=== PATIENT | male | born 1935 | race Caucasian/White ===

== ENCOUNTER → 2016-06-16 | Outpatient (CLI) | payer OTHER ==
--- NOTE | 2016-06-16 10:30 | DX ---
PA and Lateral Chest June 16, 2016 Clinical Indications: Cough for one month. Findings: The lungs are hypoventilated with some patchy basilar atelectatic change versus early cons olidation. worst at the left base. The heart and pulmonary vessels are normal. There are no pleural effusions and no pneumothorax. The bones are unremarkable for this age. Impression: Hypoventilation with basilar atelectatic change versus early consolidation, worst at th e left base. Critical results discussed by Dr. Yee with Dr. Balderas on June 16, 2016 at 1026 hours.
== END ==
LOC: BMCIMAGING 09:49
PROVIDERS: ATTEND Family Medicine
DX: R05 Cough (principal); R91.8 Other nonspecific abnormal finding of lung field

== ENCOUNTER → 2016-06-22 | Outpatient (CLI) | payer OTHER ==
--- NOTE | 2016-06-22 12:09 | DX ---
PA and Lateral Chest History: Persistent wheezing in an 81-year-old male; comparison to the prior study June 16, 2016 wh ich was performed for a history of cough for one month. Findings: The heart and mediastinal contours are normal. Pulmonary vascularity is normal. There is central peribronchial thickening. Mild streaky perihilar opacities are seen. There is persis tent bibasilar opacity which is minimally changed. Differential considerations include persistent ate lectasis versus basilar pneumonia with clinical correlation suggested. Impression: Findings consistent with airways disease are noted. Persistent bibasilar opacities opaci ties, atelectasis versus pneumonia with clinical correlation recommended.
== END ==
LOC: BMCIMAGING 11:02
PROVIDERS: ATTEND Internal Medicine
DX: J06.9 Acute upper respiratory infection, unspecified (principal)

== ENCOUNTER → 2016-10-20 | Outpatient (CLI) | payer OTHER | LOC: BHLMT 13:15 | PROVIDERS: ATTEND Internal Medicine Cardiovascular Disease | DX: I25.10 Atherosclerotic heart disease of native coronary artery without angina pectoris (principal) | CPT/HCPCS: 93306-PO ==

== ENCOUNTER → 2016-10-26 | Outpatient (CLI) | payer OTHER | LOC: BHLMT 13:00 | PROVIDERS: ATTEND Internal Medicine Cardiovascular Disease | DX: Z01.810 Encounter for preprocedural cardiovascular examination (principal); I25.10 Atherosclerotic heart disease of native coronary artery without angina pectoris | CPT/HCPCS: 78452; 93017; A9500; J2785 ==

== ENCOUNTER 2016-11-07 05:56 | Inpatient (IN) | payer OTHER ==
--- NOTE | 2016-11-06 10:34 | GHP ---
[f rep st] PREOP HISTORY AND PHYSICAL DATE OF ADMISSION: 11/07/2016 ADMISSION DIAGNOSIS: Severe left knee degenerative arthritis. HISTORY OF PRESENT ILLNESS: The patient is an 81-year-old male who will be admitted for a left tota l knee arthroplasty with Dr. Alvarez at the [facility] on November 07, 2016. The patient has had progressive left knee pain over the last several years. His activities have become markedly limited because of his left knee pain. He underwent a right total knee arthroplasty 3 or 4 years a go with a good result. Recently, because of his left knee pain he has developed some right lateral trochanteric bursitis. Because of his recalcitrant response to conservative therapies and persisten t and debilitating knee pain, he has elected to proceed with a left total knee arthroplasty. PAST MEDICAL HISTORY: Pertinent for type 2 diabetes, coronary artery disease with a single stent pl aced several years ago, partial colectomy, lumbar and cervical spine degenerative disease, right hip OA, hypertension and hypercholesterolemia. No history of MRSA, PE or DVT. CURRENT MEDICATIONS: Alpha lipoic acid 300 mg capsule, gabapentin 300 mg, Januvia 100 mg, lisinopri l 10 mg, metformin 1000 mg twice daily, nortriptyline 50 mg daily, omeprazole 40 mg, ProAir HFA 90 m cg per actuation aerosol inhaler, prochlorperazine maleate 5 mg, ropinirole 0.25 mg, simvastatin 20 mg, fish oil, baby aspirin, multivitamin, stool softener, B12 and CoQ10 enzyme. ALLERGIES: Darvon, which makes him sweaty and shaky; and lactose which causes stomach cramps. SOCIAL HISTORY: He is a former smoker. He is a retired from [employer]. He has no alcohol int max. Occasional caffeine intake. He is . FAMILY HISTORY: Pertinent for renal disease. PAST SURGICAL HISTORY: Multiple lumbar spine surgeries, bilateral shoulder surgery, right total kne e arthroplasty in 2012, bilateral cataract surgery, partial colectomy in 2009. PHYSICAL EXAMINATION: GENERAL: He is an obese, 81-year-old male. VITALS: Height 5 feet 9 inches tall, weight 238 pounds. BMI 35.1. HEENT: Head is normocephalic, atraumatic. Eyes are PERRLA. C onjunctivae and sclerae are clear. Mouth: He has good oral hygiene without any loose teeth. LUNGS : Clear. HEART: Regular rate and rhythm. He has a soft grade 2/6 systolic murmur heard best at t he left knee and the right upper sternal border. No gallops or rubs. EXTREMITIES: Pertinent findi ngs are limited to the patient's left knee. He has a slight 5-10 degree flexion contracture. Mild knee joint effusion. Generalized tenderness across the medial and lateral joint lines and patellofe moral compartment. He has about 90 degrees of flexion with pain at end range. The knee is stable t o exam. DIAGNOSTIC IMAGING: Recent x-rays taken of the patient's left knee shows significant medial and lat eral compartment degenerative arthritis. He has a fairly healthy appearing patellofemoral joint. P eripheral osteophyte formation is appreciated as well. IMPRESSION ON ADMISSION: 1. Severe left knee degenerative arthritis. 2. Treated type 2 diabetes. 3. Coronary artery disease, with single stent. 4. History of cervical and lumbar spine degenerative disk disease, degenerative joint disease and s pine fusion. 5. Treated hypertension. 6. Treated hypercholesterolemia. 7. Moderate right hip osteoarthritis and trochanteric bursitis. PLAN: The plan will be for the patient to undergo a left total knee arthroplasty with Dr. Alvarez at the [facility] on November 07, 2016. The surgery has been described to the patient incl uding the risks, benefits, and expectations. He understands the importance of postoperative physica l therapy. He understands the risk of infection, blood vessel or nerve injury, cardiac event, or kn ee dislocation. All his questions have been answered. He consents to surgery here in the office to day. /[id number]/MODL
[2016-11-07] MEDS ORDERED: LR 1,000 ML IV ONE (06:13)
[2016-11-07] MEDS ORDERED: LIDOCAINE 1% 5 ML SDV ID PRN (06:13)
[2016-11-07] MEDS ORDERED: ROPI/epiNEPH/KETOROLAC JOINT COCKTAIL IU ONE (06:30)
[2016-11-07] MEDS ORDERED: CEFAZOLIN 2 GM/DEXTR 100 ML IV ONE (06:30)
[2016-11-07] MEDS ORDERED: FAMOTIDINE 20 MG TAB PO ONE (06:30)
[2016-11-07] MEDS ORDERED: TRANEXAMIC ACID IV ONE (06:30)
[2016-11-07] MEDS ORDERED: DEXAMETHASONE 4 MG/ML VIAL IVP ONE (06:30)
[2016-11-07] MEDS ORDERED: NS IV ONE (06:30)
[2016-11-07] MEDS ORDERED: POVIDONE-IODINE 20 ML in SODIUM CL IRRIG SOLUTION 500 ML IRR ONE (06:30)
[2016-11-07] MEDS ORDERED: ACETAMINOPHEN 325 MG TAB PO ONE (06:30)
[2016-11-07] MEDS ORDERED: CHLORHEXIDINE GLUC HIBICLENS 118 ML BTL TP ONE (06:30)
[2016-11-07] MEDS ORDERED: ceFAZolin 1 GM/5 ML SYR ONE (06:51)
[2016-11-07] MEDS ORDERED: VANCOMYCIN 1 GM VIAL ONE (06:51)
[2016-11-07] MEDS ORDERED: BUPIVACAINE 0.5% 30 ML SDV ONE (07:01)
[2016-11-07] MEDS ORDERED: MIDAZOLAM 2 MG/2 ML VIAL ONE (07:02)
[2016-11-07] MEDS ORDERED: PROPOFOL 200 MG/20 ML VIAL ONE ×2 (07:03)
[2016-11-07] MEDS ORDERED: fentaNYL 100 MCG/2 ML INJ ONE ×2 (07:04)
--- NOTE | 2016-11-07 08:53 | POSTOPPROG ---
Post Op Note Date of Operation: 11/07/16 Surgeon: Shan Alvarez Supply Chain Technician: Whitley Anesthesiologist: Raine Anesthesia: GET(General Endotracheal) Post-op Diagnosis: L knee arthritis Procedure: L TKA Inf/Abcess present in the surg proc area at time of surgery?: No EBL: 50-100 (add canal block)
[2016-11-07] MEDS ORDERED: CALCIUM CARBONATE 500 MG CHEWABLE TAB PO PRN (09:51)
[2016-11-07] MEDS ORDERED: NON-FORMULARY NEW DRUG (Omeprazole [Prilosec 20 Mg] 20 MG) PO PRN (09:51)
[2016-11-07] MEDS ORDERED: DIPHENOXYLATE/ATROPINE LOMOTIL 1 TAB PO PRN (09:53)
[2016-11-07] MEDS ORDERED: TEMAZEPAM 15 MG CAP PO PRN (09:53)
[2016-11-07] MEDS ORDERED: METOCLOPRAMIDE 10 MG/2 ML VIAL IVP PRN (09:53)
[2016-11-07] MEDS ORDERED: diphenhydrAMINE 25 MG CAP PO PRN (09:53)
[2016-11-07] MEDS ORDERED: BISACODYL 10 MG SUPP PR PRN (09:53)
[2016-11-07] MEDS ORDERED: ONDANSETRON DISINTEGRATING 4 MG TAB PO PRN (09:53)
[2016-11-07] MEDS ORDERED: NS 500 ML IV PRN (09:53)
[2016-11-07] MEDS ORDERED: POLYETHYLENE GLYCOL 3350 17 GM PKT PO PRN (09:53)
[2016-11-07] MEDS ORDERED: MAGNESIUM HYDROXIDE 30 ML UDCUP PO PRN (09:53)
[2016-11-07] MEDS ORDERED: PHARMACY PAIN CONSULT 1 EA MISC PRN (09:53)
[2016-11-07] MEDS ORDERED: LACTULOSE 20 GM/30 ML UDCUP PO PRN (09:53)
[2016-11-07] MEDS ORDERED: ONDANSETRON 4 MG/2 ML VIAL IVP PRN (09:53)
[2016-11-07] MEDS ORDERED: PROMETHAZINE HCL 25 MG SUPPR PR PRN (09:53)
[2016-11-07] MEDS ORDERED: traMADol 50 MG TAB PO PRN (09:53)
[2016-11-07] MEDS ORDERED: PROMETHAZINE HCL 25 MG/ML INJ IVP PRN (09:53)
--- NOTE | 2016-11-07 10:42 | GOP ---
[f rep st] OPERATIVE REPORT DATE OF OPERATION: 11/07/2016 SURGEON: Shan Alvarez MD COMPUTING MACHINE OPERATOR: Carroll Hinton and Guido Martinez. ANESTHESIA: A combination of general an adductor canal block. ANESTHESIOLOGIST: Dr. Matt Ni. PREOPERATIVE DIAGNOSIS: Left knee severe degenerative arthritis. POSTOPERATIVE DIAGNOSIS: Left knee severe degenerative arthritis. PROCEDURE PERFORMED: Left total knee arthroplasty, cemented, Go and Nephew Journey II, posterior stabilized. FINDINGS: ESTIMATED BLOOD LOSS: Following deflation of the tourniquet, was about 100 mL. COUNTS: The sponge and needle count were correct on 2 occasions. The patient was awakened from anesthesia, transferred to his gurney and taken to the PACU in satisfa ctory condition. There were no intraoperative complications. In the PACU, for additional postop pain control, Dr. Ni performed an adductor canal block. Guido Martinez and Carroll Hinton acted as surgical assistants. Their assistance was a medical chris saldivar. DESCRIPTION OF PROCEDURE: The patient was given 2 g of preoperative IV Ancef within 60 minutes of s urgery. He also received IV tranexamic acid at a dose of 10 mg/kg. He was placed on the operating room table and given general anesthesia by Dr. Ni. A Sarmiento catheter was not used. He wore a GI stocking and SCD on the nonoperative leg. His left lower extremity was prepped with ChloraPrep from the upper thigh tourniquet to the tips of the toes. It was draped free using sterile sheets, s tockinette, and Ioban plastic adhesive drape. The lower leg was wrapped with compressive Coban. Th e leg was exsanguinated with elevation and a 6-inch compressive wrap, and the pneumatic tourniquet w as inflated to 250 mmHg. The World Health Organization time-out was performed to verify the correct patient identity and the correct surgical side and site. The [place] time-out was also performed. The Shopographyayo leg holding device was sterilely attached to the operating room table and used throughou t the procedure to help position the knee. A straight midline incision was made centered on the patella. Subcutaneous tissues were sharply div ided and hemostasis was obtained using electrocautery. A medial subcutaneous flap was developed, an d capsule and synovium were opened in medial parapatellar fashion. Extensive degenerative changes w ere present in the medial compartment and in the patellofemoral joint. The medial capsule and perio steum were elevated off the rim of the medial tibial plateau all the way around to the posteromedial corner. His medial collateral ligament was released enough to balance the medial side of the knee. In order to improve exposure, his patella was prepared first. The original thickness of the patella was measured. Peripheral osteophytes were removed. I cut a flat surface on the back of the patell a. It was sized for a 35 mm resurfacing component. I removed enough bone from the patella such mike t the remaining bone plus the thickness of the patella component recreated the original thickness of the patella. The composite thickness was 22 mm. The intramedullary alignment guide system was used to set up the distal femoral cut. The distal fem ur was cut in 5 degrees of valgus. I made a +2 mm cut on the distal femur. The sizing jig was used to determine proper femoral sizing. He was a true size 6 femur without a shift. The 5 in 1 cuttin g block was applied, and the anterior and posterior condylar cuts and chamfer cuts were made. The f inal jig was used to remove the central portion of the distal femur to accommodate the posterior sta bilized femoral component. I was careful to determine proper rotation by referencing off Whitesides line. Each cut was checked for accuracy before and after it was made. The femur was sized for a s ize 6 posterior stabilized component. The trial component was tapped securely into place and was a good fit. Next, the tibia was prepared. The proximal tibial cut was made using the extramedullary alignment g uide system. The cut was made in a few degrees of posterior slope. I was careful to achieve proper varus/valgus alignment and proper rotation. The posterior compartment was cleared of meniscal remn ants. Osteophytes were removed the back of the femoral condyles. I checked the flexion and extensi on gaps, and they were equal, balanced and rectangular. The tibia was sized for a size 5 component width. With the trial components in place, I selected a 9 mm polyethylene posterior stabilized tibial insert. The knee easily came to full extension and fl exed to 130 degrees. There was no overstuffing in flexion. His collateral ligaments were stable an d balanced in 90 degrees of flexion and full extension. The trial patellar button was applied and t racking was checked. Tracking was excellent, without any digital pressure. 40 mL of a joint anesthetic cocktail was injected into the posterior capsule, the periarticular stru ctures, the quadriceps muscle and tendon areas, and the subcutaneous tissues along the skin edges. A second dose of IV tranexamic acid was given at a dose of 10 mg/kg. The surfaces were prepared for cementing. They were carefully cleaned with the pulsating lavage and thoroughly dried. The CarboJet device was used to blow dry the cancellous surfaces. A double batc h of high viscosity methylmethacrylate cement with 2 g of powdered vancomycin added was mixed. Whil e it was still in a semi liquid state, all [address] components were cemented in place. Excess cement was r emoved before it hardened. The 9 mm trial tibial insert was re-tried and was the proper thickness. The actual component was in serted and locked into place. The knee was thoroughly irrigated one final time with a dilute Betadi ne solution. The tourniquet was deflated and the total tourniquet time was 39 minutes. The vastus medialis porti on of the extensor mechanism was repaired with several interrupted [id number] #2 FiberWire sutu res. The capsule and synovium were closed first with multiple interrupted [id number] 0 PDS sut ures followed by a running #2 barbed Ethicon Stratafix PDO suture. The subcutaneous tissues were cl osed with a running 0 barbed Ethicon Stratafix Monoderm suture. The skin was closed with a running 3-0 barbed Ethicon Stratafix Monoderm subcuticular suture. The skin was sealed with half-inch Steri -Strips. The wound was covered with Xeroform gauze and flat 4x4s, and the knee was wrapped with a K erlix and 6-inch compressive wrap. A long-leg GI stocking and SCD were applied followed by the case management coordinator ling device. He wore a stocking and SCD on the opposite leg during the procedure. I used a size 6 cemented Go and Nephew Oxinium posterior stabilized femoral component, size 5 zully ented tibial base plate, a 9 mm posterior stabilized tibial insert and a 35 mm cemented round all-po lyethylene resurfacing patellar component. /[id number]/MODL
[2016-11-07] MEDS ORDERED: PANTOPRAZOLE SODIUM 40 MG TAB PO PRN (11:06)
[2016-11-07] MEDS: LR 1,000 ML IV SCH ×2 (11:18→19:32)
--- NOTE | 2016-11-07 12:02 | GOP ---
[f rep st] OPERATIVE REPORT DATE OF OPERATION: 11/07/2016 SURGEON: Shan Alvarez MD PREOPERATIVE DIAGNOSIS: POSTOPERATIVE DIAGNOSIS: PROCEDURE PERFORMED: FINDINGS: DESCRIPTION OF PROCEDURE: ADDENDUM/COMPLETION OF OPERATIVE NOTE: The last couple of paragraphs did not get transcribed. I am not sure why. Just add a new paragraph: The estimated blood loss following deflation of the tourniquet was about 100 mL. The sponge and needle count were correct on 2 occasions. The patient was awakened from anesthesia, transferred to his [facility] and taken to the PACU i n satisfactory condition. There were no intraoperative complications. In the PACU, for additional postoperative pain control, Dr. Ni performed an adductor canal blo ck. Carroll Hinton and Guido Martinez acted as surgical assistants. Their assistance was a devon saldivar. /[id number]/MODL
[2016-11-07] MEDS: ACETAMINOPHEN 325 MG TAB PO SCH ×3 (13:46→23:09)
[2016-11-07] MEDS ORDERED: ceFAZolin 2 GM/DEXTROSE 100 ML IV SCH (14:00)
[2016-11-07] MEDS: KETOROLAC 30 MG/1 ML SDV IVP PRN ×2 (14:37→22:17)
[2016-11-07] MEDS: CYCLOBENZAPRINE 10 MG TAB PO PRN ×2 (14:37→22:16)
[2016-11-07] MEDS: ceFAZolin 2 GM in D5W 100 ML IV SCH ×2 (14:43→21:16)
[2016-11-07] MEDS: OMEGA-3 FATTY ACIDS 1,000 MG CAP PO SCH (16:35)
[2016-11-07] MEDS: metFORMIN HCL 500 MG TAB PO SCH (16:35)
[2016-11-07] MEDS: ASPIRIN 325 MG TAB PO SCH (21:16)
[2016-11-07] MEDS: FAMOTIDINE 20 MG TAB PO SCH (21:17)
[2016-11-07] MEDS: NORTRIPTYLINE HCL 50 MG CAP PO SCH (21:18)
[2016-11-07] MEDS: SENNOSIDES/DOCUSATE SODIUM TAB PO SCH (21:19)
[2016-11-07] MEDS: oxyCODONE IR 5 MG TAB PO PRN (22:16)
[2016-11-08 04:08] VITALS: TEMP 98.2
[2016-11-08 04:57] LABS: HEMATOCRIT 38.7 % (40.0-51.0); HEMOGLOBIN 12.8 g/dL (13.7-17.5)
[2016-11-08] MEDS: ceFAZolin 2 GM in D5W 100 ML IV SCH (05:19)
[2016-11-08] MEDS: ACETAMINOPHEN 325 MG TAB PO SCH ×2 (05:19→11:40)
[2016-11-08 07:59] VITALS: RESP 18
[2016-11-08] MEDS: OMEGA-3 FATTY ACIDS 1,000 MG CAP PO SCH (08:18)
[2016-11-08] MEDS: metFORMIN HCL 500 MG TAB PO SCH (08:18)
[2016-11-08] MEDS: ASPIRIN 325 MG TAB PO SCH (08:19)
[2016-11-08] MEDS: NORTRIPTYLINE HCL 50 MG CAP PO SCH (08:19)
[2016-11-08] MEDS: FAMOTIDINE 20 MG TAB PO SCH (08:19)
[2016-11-08] MEDS: SENNOSIDES/DOCUSATE SODIUM TAB PO SCH (08:20)
[2016-11-08] MEDS: KETOROLAC 30 MG/1 ML SDV IVP PRN (08:22)
[2016-11-08] MEDS ORDERED: MULTIVITAMINS 1 EACH TAB PO SCH (09:00)
[2016-11-08] MEDS ORDERED: ATORVASTATIN CALCIUM 10 MG TAB PO SCH (09:00)
[2016-11-08] MEDS ORDERED: LISINOPRIL 10 MG TAB PO SCH (09:00)
[2016-11-08] MEDS ORDERED: FERROUS SULFATE 140 MG TAB.ER PO SCH (09:00)
[2016-11-08] MEDS ORDERED: NON-FORMULARY NEW DRUG (Simvastatin [Zocor 20 Mg] 20 MG) PO SCH (09:00)
--- NOTE | 2016-11-08 09:22 | SOAPPROG ---
SOAP Progress Note Assessment/Plan: Assessment: Afebrile. Up and walking in [place]. Moderate pain. 90 degrees of flexion. H/H is good. Films look good. Dsg is dry. Plan: Continue PT today. To [facility] in [place] today. 11/08/16 09:22 Objective: Vital Signs Temp Pulse Resp BP Pulse Ox 36.8 C 104 H 18 120/61 92 11/08/16 07:58 11/08/16 07:58 11/08/16 07:58 11/08/16 08:19 11/08/16 07:58 Laboratory Results 11/08/16 04:34 11/07/16 11/08/16 11/09/16 05:59 05:59 05:59 Intake Total 4180 Output Total 5625 Balance 1705 ICD10 Worksheet Patient Problems: Problems Problem Status Onset Osteoarthritis of left knee Acute Osteoarthritis of right knee Acute
--- NOTE | 2016-11-08 09:25 | PDIAF ---
- Diagnosis Diagnosis: left knee OA Code Status: Full Code - Medication Management Discharge Medications: Medications to Continue on Transfer Docusate Sodium [Colace 100 MG (*)] 100 mg PO BID 03/07/13 [Last Taken 11/07/16 05:15] Herbals/Supplements -Info Only 1 each PO AD 03/07/13 [Last Taken 03/16/13 1] Lisinopril [Zestril 10 mg (*)] 10 mg PO DAILY 03/07/13 [Last Taken 11/07/16 05: 15] Nortriptyline HCl [Pamelor 50 mg (*)] 50 mg PO BID 03/07/13 [Last Taken 11/06/16 ] [place]-3 Fatty Acids [Fish Oil 1000 mg (*)] 1,000 mg PO BIDMEAL 03/07/13 [Last Taken 10/31/16] Simvastatin [Zocor 20 mg] 20 mg PO DAILY 03/07/13 [Last Taken 11/06/16] metFORMIN HCL [Glucophage 500 mg (*)] 1,000 mg PO BIDMEAL 03/07/13 [Last Taken 11/04/16] Calcium Carbonate [Tums 500MG (*)] 1,000 mg PO DAILY PRN 03/18/13 [Last Taken ] Omeprazole [Prilosec 20 mg] 20 mg PO DAILY PRN 03/18/13 [Last Taken 11/07/16 05: 15] Multivitamins [Multivitamin (*)] 1 each PO DAILY 11/01/16 [Last Taken 11/03/16] Naproxen Sodium [Aleve 220 MG (*)] 440 mg PO HS 11/01/16 [Last Taken 11/02/16] Acetaminophen [Tylenol 325mg (*)] 650 mg PO Q6HRS #0 tab 11/08/16 [Last Taken Unknown] Aspirin [Aspirin 325 mg (*)] 325 mg PO DAILY #21 tab 11/08/16 [Last Taken Unknown] Ferrous Sulfate [Slow Fe 140 MG (*)] 140 mg PO DAILY #30 tab.er 11/08/16 [Last Taken Unknown] Ondansetron Odt [Zofran Odt 4 mg (*)] 4 mg PO Q4HRS PRN #0 tab 11/08/16 [Last Taken Unknown] oxyCODONE IR [Oxycodone Ir (*)] 5 - 10 mg PO Q3HRS PRN #0 tab 11/08/16 [Last Taken Unknown] traMADol [Ultram 50 mg (*)] 50 mg PO Q6HRS PRN #0 tab 11/08/16 [Last Taken Unknown] Discharge Medications: Refer to the Discharge Home Medication list for PRN reason. PICC Care - Routine: N/A - Orders Services needed: Physical Therapy Diet Recommendation: no restrictions on diet Diet Texture: Regular Texture Diet Sarmiento: Not applicable Kip Stockings Discontinue Date: 1 week Wound Care Instructions: keep clean and dry. You may shower. Activity/Weight Bearing Restrictions: as tolerated. Equipment: Use Zero knee device while in bed as tolerated. - Follow Up Care Current Providers and Referrals: Shan Alvarez MD [Medical Doctor] - 11/23/16 10:45 am Dagoberto Oliver MD [Primary Care Provider] -
--- NOTE | 2016-11-08 09:46 | GDS ---
[f rep st] DISCHARGE SUMMARY ADMISSION DIAGNOSIS: Left knee severe degenerative arthritis. DISCHARGE DIAGNOSIS: Left knee severe degenerative arthritis. OPERATION PERFORMED: November 07, 2016, a left total knee arthroplasty, cemented. POSTOPERATIVE COMPLICATIONS: None. CONDITION ON DISCHARGE: Improved. DESCRIPTION OF HOSPITAL COURSE: The patient was admitted to the hospital on the morning of surgery. His admission CBC and electrolytes were normal. BUN and creatinine 16 and 0.8. The same day, und er a combination of general anesthesia and an adductor canal block, he underwent a left total knee a rthroplasty. Postoperatively, he was treated with multimodal DVT prophylaxis, including aspirin and early mobilization. On the first postoperative day, his hemoglobin and hematocrit were 12.8 and 38 .7. He was seen by Physical Therapy, and made good progress with ambulation and knee range of motio n. By the time of discharge, he was afebrile and was independent walking with a walker. DISPOSITION: The patient is transferred to [facility] in [place]. He may progress to full judd ghtbearing on the left as tolerated. Continue aspirin 325 mg p.o. daily for 21 days. I will see zaida mateo back in the office on November 23, 2016. He has prescriptions for oxycodone and tramadol for pain con trol. If there are any problems, he is to call me at the office. Copy requested to: [facility] in [place] /[id number]/MODL
--- NOTE | 2016-11-08 11:30 | PDIAF ---
- Diagnosis Diagnosis: left knee OA Code Status: Full Code - Medication Management Discharge Medications: Medications to Continue on Transfer Docusate Sodium [Colace 100 MG (*)] 100 mg PO BID 03/07/13 [Last Taken 11/07/16 05:15] Herbals/Supplements -Info Only 1 each PO AD 03/07/13 [Last Taken 03/16/13 1] Lisinopril [Zestril 10 mg (*)] 10 mg PO DAILY 03/07/13 [Last Taken 11/07/16 05: 15] Nortriptyline HCl [Pamelor 50 mg (*)] 50 mg PO BID 03/07/13 [Last Taken 11/06/16 ] [place]-3 Fatty Acids [Fish Oil 1000 mg (*)] 1,000 mg PO BIDMEAL 03/07/13 [Last Taken 10/31/16] Simvastatin [Zocor 20 mg] 20 mg PO DAILY 03/07/13 [Last Taken 11/06/16] metFORMIN HCL [Glucophage 500 mg (*)] 1,000 mg PO BIDMEAL 03/07/13 [Last Taken 11/04/16] Calcium Carbonate [Tums 500MG (*)] 1,000 mg PO DAILY PRN 03/18/13 [Last Taken ] Omeprazole [Prilosec 20 mg] 20 mg PO DAILY PRN 03/18/13 [Last Taken 11/07/16 05: 15] Multivitamins [Multivitamin (*)] 1 each PO DAILY 11/01/16 [Last Taken 11/03/16] Naproxen Sodium [Aleve 220 MG (*)] 440 mg PO HS 11/01/16 [Last Taken 11/02/16] Acetaminophen [Tylenol 325mg (*)] 650 mg PO Q6HRS #0 tab 11/08/16 [Last Taken Unknown] Aspirin [Aspirin 325 mg (*)] 325 mg PO DAILY #21 tab 11/08/16 [Last Taken Unknown] Ferrous Sulfate [Slow Fe 140 MG (*)] 140 mg PO DAILY #30 tab.er 11/08/16 [Last Taken Unknown] Ondansetron Odt [Zofran Odt 4 mg (*)] 4 mg PO Q4HRS PRN #0 tab 11/08/16 [Last Taken Unknown] oxyCODONE IR [Oxycodone Ir (*)] 5 - 10 mg PO Q3HRS PRN #0 tab 11/08/16 [Last Taken Unknown] traMADol [Ultram 50 mg (*)] 50 mg PO Q6HRS PRN #0 tab 11/08/16 [Last Taken Unknown] Discharge Medications: Refer to the Discharge Home Medication list for PRN reason. PICC Care - Routine: N/A - Orders Services needed: Physical Therapy Diet Recommendation: ADA 2000 consistent carb Diet Texture: Regular Texture Diet Sarmiento: Not applicable Kip Stockings Discontinue Date: 1 week Wound Care Instructions: keep clean and dry. You may shower. Activity/Weight Bearing Restrictions: as tolerated. Equipment: Use Zero knee device while in bed as tolerated. - Follow Up Care Current Providers and Referrals: Shan Alvarez MD [Medical Doctor] - 11/23/16 10:45 am Dagoberto Oliver MD [Primary Care Provider] -
[2016-11-08] MEDS: oxyCODONE IR 5 MG TAB PO PRN (11:41)
[2016-11-08 12:35] VITALS: BP 116/72; PULSE 97; O2SAT 93
== END 2016-11-08 13:43 | DRG 470 ==
LOC: F3N 05:56
PROVIDERS: ADMIT Orthopaedic Surgery; ATTEND Orthopaedic Surgery
PROC: 0SRD0J9 Replacement of Left Knee Joint with Synthetic Substitute, Cemented, Open Approach (ICD-10-PCS; principal; 2016-11-07 07:15)
DX: M17.12 Unilateral primary osteoarthritis, left knee (principal); E11.9 Type 2 diabetes mellitus without complications; I25.10 Atherosclerotic heart disease of native coronary artery without angina pectoris; I10 Essential (primary) hypertension; E78.00 Pure hypercholesterolemia, unspecified; Z95.5 Presence of coronary angioplasty implant and graft; Z96.651 Presence of right artificial knee joint; Z87.891 Personal history of nicotine dependence
CPT/HCPCS: 97110-GP; 97116-GP; 97161-GP; 97165-GO; C1713; G8978-GP-CJ; G8979-GP-CI; G8987-GO-CJ; G8988-GO-CI; J0171; J0690; J1100; J1885; J2250; J2550; J2704; J2795; J3010; J3370

== ENCOUNTER → 2017-02-14 | Outpatient (CLI) | payer OTHER, MEDICARE | LOC: BMCIMAGING 15:31 | PROVIDERS: ATTEND Internal Medicine | DX: J40 Bronchitis, not specified as acute or chronic (principal) ==

== ENCOUNTER → 2017-10-30 | Outpatient (CLI) | payer OTHER, MEDICARE | LOC: BHLMT 15:30 | PROVIDERS: ATTEND Internal Medicine Interventional Cardiology | DX: I25.10 Atherosclerotic heart disease of native coronary artery without angina pectoris (principal); E78.00 Pure hypercholesterolemia, unspecified; I10 Essential (primary) hypertension; R60.9 Edema, unspecified | CPT/HCPCS: 93005-PO ==

== ENCOUNTER → 2017-10-31 | Outpatient (CLI) | payer OTHER, MEDICARE | LOC: FIMAGING 15:03 | PROVIDERS: ATTEND Internal Medicine Interventional Cardiology | DX: R60.0 Localized edema (principal) ==

== ENCOUNTER → 2017-11-26 | Outpatient (CLI) | payer OTHER, MEDICARE | LOC: BMCIMAGING 15:31 | PROVIDERS: ATTEND Orthopaedic Surgery Hand Surgery | DX: M11.232 Other chondrocalcinosis, left wrist (principal); M19.042 Primary osteoarthritis, left hand | CPT/HCPCS: 86812-90 ==

== ENCOUNTER 2017-12-31 11:13 | Inpatient (IN) | payer OTHER, MEDICARE ==
--- NOTE | 2017-12-31 11:38 | CPEKG ---
Heart Rate: 118 RR Interval: 508 QRSD Interval: 102 QT Interval: 328 QTC Interval: 460 QRS [place]: -61 T Wave [place]: 49 EKG Severity - ABNORMAL ECG - EKG Impression: ATRIAL FIBRILLATION, V-RATE 91-143 Electronically Signed By: Romie Downing 31-Dec-2017 11:55:30
[2017-12-31] MEDS ORDERED: ASPIRIN 81 MG CHEWABLE TAB PO ONE (12:05)
--- NOTE | 2017-12-31 12:11 | EDPHY ---
H & P Stated Complaint: SOB, cough, weakness for 6 months, getting worse Time Seen by Provider: 12/31/17 11:52 HPI/ROS: CHIEF COMPLAINT: Shortness of breath HISTORY OF PRESENT ILLNESS: The patient is an 84-year-old man with a history of a single cardiac stent as well as obesity and obstructive sleep apnea who comes to the emergency department complaining of shortness of breath over the last 6 months and a dry cough. He has not had a fever. He has seen his primary took him off of his lisinopril. He is in atrial fibrillation today. He and his did not know what that was. I do see an old EKG in 2010 that also was in atrial fibrillation. He is not anticoagulated. No focal weakness or deficits. He states that he feels weak generally throughout his entire body and shortness of breath gets worse when he tries to ambulate. He denies chest pain or palpitations. He does have slight increased swelling in his legs although he does have some at baseline. REVIEW OF SYSTEMS: Constitutional: denies: chills, fever, recent illness, recent injury EENTM: denies: blurred vision, double vision, nose congestion Respiratory: See HPI Cardiac: See HPI denies: chest pain, irregular heart rate, lightheadedness, palpitations Gastrointestinal/Abdominal: denies: abdominal pain, diarrhea, nausea, vomiting, blood streaked stools Genitourinary: denies: dysuria, frequency, hematuria, pain Musculoskeletal: denies: joint pain, muscle pain Skin: denies: lesions, rash, jaundice, bruising Neurological: denies: headache, numbness, paresthesia, tingling, dizziness, weakness Hematologic/Lymphatic: denies: blood clots, easy bleeding, easy bruising Immunologic/allergic: denies: HIV/AIDS, transplant EXAM: GENERAL: Moderate distress. HEAD: Atraumatic, normocephalic. EYES: Pupils equal round and reactive to light, extraocular movements intact, sclera anicteric, conjunctiva are normal. ENT: TMs normal, nares patent, oropharynx clear without exudates. Moist mucous membranes. NECK: Mild diffuse crackles LUNGS: Breath sounds clear to auscultation bilaterally and equal. No wheezes rales or rhonchi. HEART: Irregular with systolic murmur, rubs or gallops. ABDOMEN: Soft, nontender, normoactive bowel sounds. No guarding, no rebound. No masses appreciated. BACK: No CVA tenderness, no spinal tenderness, step-offs or deformities EXTREMITIES: Normal range of motion, 1+ pitting edema. No clubbing or cyanosis. NEUROLOGICAL: Cranial nerves II through XII grossly intact. Normal speech, normal gait. 5/5 strength, normal movement in all extremities, normal sensation PSYCH: Normal mood, normal affect. SKIN: Warm, dry, normal turgor, no visible rashes or lesions. 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 - Social History Smoking Status: Former smoker Alcohol Use: Sober Constitutional: Initial Vital Signs Temperature (C) 37.0 C 12/31/17 11:17 Heart Rate 113 H 12/31/17 11:17 Respiratory Rate 20 12/31/17 11:17 Blood Pressure 118/79 12/31/17 11:17 O2 Sat (%) 91 L 12/31/17 11:17 O2 Delivery Mode Nasal Cannula O2 (L/minute) 5 Allergies/Adverse Reactions: DARVON Allergy (Uncoded 12/31/17 11:16) Other-Enter Comments LACTOSE INTOL Allergy (Uncoded 12/31/17 11:16) Other-Enter Comments Home Medications: Medication Instructions Recorded Docusate Sodium [Colace 100 MG (*)] 100 mg PO BID 03/07/13 Herbals/Supplements -Info Only 1 each PO AD 03/07/13 Lisinopril [Zestril 10 mg (*)] 10 mg PO DAILY 03/07/13 Nortriptyline HCl [Pamelor 50 mg 50 mg PO BID 03/07/13 (*)] [place]-3 Fatty Acids [Fish Oil 1000 1,000 mg PO BIDMEAL 03/07/13 mg (*)] Simvastatin [Zocor 20 mg] 20 mg PO DAILY 03/07/13 metFORMIN HCL [Glucophage 500 mg 1,000 mg PO BIDMEAL 03/07/13 (*)] Calcium Carbonate [Tums 500MG (*)] 1,000 mg PO DAILY PRN 03/18/13 Multivitamins [Multivitamin (*)] 1 each PO DAILY 11/01/16 Naproxen Sodium [Aleve 220 MG (*)] 440 mg PO HS 11/01/16 Aspirin [Aspirin 81mg (*)] 81 mg PO HS 12/31/17 Cyanocobalamin (Vitamin B-12) 1,000 mcg PO DAILY 12/31/17 [Vitamin B-12] Gabapentin [Neurontin 300 MG (*)] 300 mg PO DAILY 12/31/17 Gabapentin [Neurontin 300 MG (*)] 600 mg PO HS 12/31/17 Omeprazole 40 mg PO DAILY 12/31/17 rOPINIRole HCL [Requip] 0.25 mg PO HS 12/31/17 Medical Decision Making - Diagnostics EKG Interpretation: An EKG obtained and was read and documented in trace view. Please see trace view for full reading and report. Atrial fibrillation rate 118 no acute ischemic changes Imaging: I viewed and interpreted images myself (Mild pulmonary edema) ED Course/Re-evaluation: 12:55 p.m. the patient has atrial fibrillation and is not treated. The he has mild CHF. I will give him Lasix and diltiazem and admit. He is also anemic but this appears to be somewhat baseline. No blood in his stool. 1:05 p.m. I spoke with Lidya who accepted for Dr. Edge to a telemetry. Will start the patient on heparin as well. Differential Diagnosis: Partial list of the Differential diagnosis considered include but were not limited to; CHF, atrial fibrillation and although unlikely based on the history and physical exam, I also considered pneumonia, pneumothorax, PE, acute coronary disease. Critical Care Time: Critical care time spent by me, Dr. Downing exclusive with this patient was 45 minutes, exclusive of the PA time exclusive of procedures. The organ system that was at risk was cardiovascular and I gave medication, diagnostics and admission and consultation to prevent worsening of the patient's condition - Data Points Laboratory Results: Laboratory Results 01/01/18 05:52 01/01/18 05:52 Medications Given: Albuterol/Ipratropium (Duoneb) 3 ml IH Q6HRS PRN PRN Reason: Short of Breath/Dyspnea Stop: 06/29/18 23:05 Last Admin: 01/02/18 09:06 Dose: 3 ml Apixaban (Eliquis) 5 mg PO BID [facility] Stop: 06/30/18 20:59 Last Admin: 01/02/18 08:34 Dose: 5 mg Atorvastatin Calcium (Lipitor) 10 mg PO DAILY [facility] Stop: 06/30/18 08:59 Last Admin: 01/02/18 08:33 Dose: 10 mg Docusate Sodium (Colace) 100 mg PO BID [facility] Stop: 06/29/18 20:59 Last Admin: 01/02/18 08:34 Dose: 100 mg Ferrous Sulfate (Ferrous Sulfate) 325 mg PO DAILY [facility] Stop: 07/01/18 08:59 Last Admin: 01/02/18 08:33 Dose: 325 mg Gabapentin (Neurontin) 300 mg PO DAILY [facility] Stop: 06/30/18 08:59 Last Admin: 01/02/18 08:34 Dose: 300 mg Gabapentin (Neurontin) 600 mg PO HS [facility] Stop: 06/29/18 20:59 Last Admin: 01/01/18 20:28 Dose: 600 mg Insulin Human Lispro (Humalog Lispro) 0 unit SC TIDMEAL [facility] PRN Reason: Protocol Stop: 06/29/18 17:59 Last Admin: 01/02/18 17:15 Dose: Not Given Metoprolol Tartrate (Lopressor) 25 mg PO BID [facility] Stop: 06/29/18 20:59 Last Admin: 01/02/18 08:33 Dose: 25 mg Nortriptyline HCl (Pamelor) 50 mg PO BID [facility] Stop: 06/29/18 20:59 Last Admin: 01/02/18 08:34 Dose: 50 mg Feaot-6-Dgkw Ethyl Esters (Fish Oil) 1,000 mg PO BIDMEAL [facility] Stop: 06/29/18 17:59 Last Admin: 01/02/18 17:49 Dose: 1,000 mg Pantoprazole Sodium (Protonix) 40 mg PO DAILY [facility] Stop: 06/30/18 08:59 Last Admin: 01/02/18 08:32 Dose: 40 mg Polyethylene Glycol (Miralax) 17 gm PO DAILY PRN; Protocol PRN Reason: Constipation, patient prefers Stop: 06/30/18 15:25 Last Admin: 01/02/18 17:53 Dose: 17 gm Ropinirole HCl (Requip) 0.25 mg PO HS [facility] Stop: 06/29/18 20:59 Last Admin: 01/01/18 20:27 Dose: 0.25 mg Senna/Docusate Sodium (Senokot-S) 1 - 2 tab PO BID [facility] PRN Reason: Protocol Stop: 06/30/18 20:59 Last Admin: 01/02/18 08:33 Dose: 2 tab Discontinued Medications Aspirin (Aspirin) 324 mg PO EDNOW ONE Stop: 12/31/17 12:06 Last Admin: 12/31/17 12:16 Dose: 324 mg Diltiazem HCl (Cardizem 25 Mg/5 Ml Vial) 10 mg IVP EDNOW ONE Stop: 12/31/17 12:57 Last Admin: 12/31/17 13:15 Dose: 10 mg Furosemide (Lasix Injection) 40 mg IVP EDNOW ONE Stop: 12/31/17 12:58 Last Admin: 12/31/17 13:13 Dose: 40 mg Furosemide (Lasix Injection) 20 mg IVP ONCE ONE Stop: 01/02/18 09:53 Last Admin: 01/02/18 10:39 Dose: 20 mg Heparin Sodium (Porcine) (Heparin Injection) 0 unit IVP EDNOW ONE Stop: 12/31/17 13:05 Last Admin: 12/31/17 13:23 Dose: 4,000 unit Heparin Sodium (Porcine) (Heparin 50 Units/Ml (Premix)) 500 mls @ 0 mls/hr IV EDNOW ONE; Per Protocol PRN Reason: Protocol Stop: 12/31/17 13:05 Last Admin: 12/31/17 13:29 Dose: 500 mls Diltiazem/Dextrose (Diltiazem 125mg/125ml (Premix)) 125 mls @ 0 mls/hr IV CONT BRIELLE; Per Protocol PRN Reason: Protocol Stop: 06/29/18 17:29 Last Admin: 12/31/17 17:58 Dose: 125 mls Erzqi-5-Aeek Ethyl Esters (Fish Oil) 1,000 mg PO BID [facility] Stop: 06/29/18 20:59 Last Admin: 12/31/17 20:51 Dose: 1,000 mg Point of Care Test Results: Chemistry 01/01/18 01/01/18 12/31/17 11:41 07:50 21:34 POC Glucose 182 mg/dL H mg/dL 152 mg/dL H mg/dL 156 mg/dL H mg/dL (70-100) (70-100) (70-100) POC Troponin I 12/31/17 12/31/17 16:23 12:23 POC Glucose 113 mg/dL H mg/dL (70-100) POC Troponin I 0.02 ng/mL ng/mL (0.00-0.08) Departure - Departure Disposition: [facility] Inpatient Acute Clinical Impression: Atrial fibrillation Qualifiers: Atrial fibrillation type: unspecified Qualified Code(s): I48.91 - Unspecified atrial fibrillation Pulmonary edema Qualifiers: Chronicity: acute Qualified Code(s): J81.0 - Acute pulmonary edema Condition: Fair
[2017-12-31 12:14] LABS: PLATELET COUNT 286 10^3/uL (150-400)
[2017-12-31 12:21] LABS: INR 1.14 (0.83-1.16); PROTIME(PATIENT) 14.8 SEC (12.0-15.0)
[2017-12-31] MEDS ORDERED: DILTIAZEM 25 MG/5 ML VIAL IVP ONE (12:56)
[2017-12-31] MEDS ORDERED: FUROSEMIDE 40 MG/4 ML VIAL IVP ONE (12:57)
[2017-12-31] MEDS ORDERED: HEPARIN/DEXTROSE 500 ML IV ONE (13:04)
[2017-12-31] MEDS ORDERED: HEPARIN 10,000 UNIT/10 ML MDV (1,000 UNIT/ML) IVP ONE (13:04)
[2017-12-31] MEDS ORDERED: ONDANSETRON 4 MG/2 ML VIAL IVP PRN (14:45)
[2017-12-31] MEDS ORDERED: ACETAMINOPHEN 325 MG TAB PO PRN (14:45)
[2017-12-31] MEDS ORDERED: ONDANSETRON DISINTEGRATING 4 MG TAB PO PRN (14:45)
[2017-12-31] MEDS ORDERED: HEPARIN 10,000 UNIT/10 ML MDV (1,000 UNIT/ML) IVP PRN (14:47)
[2017-12-31] MEDS ORDERED: D50W 25 GM/50 ML SYR IVP PRN (14:57)
[2017-12-31] MEDS ORDERED: HEPARIN/DEXTROSE 500 ML IV SCH (15:00)
--- NOTE | 2017-12-31 15:27 | GHP ---
[f rep st] HISTORY AND PHYSICAL DATE OF ADMISSION: 12/31/2017 CHIEF COMPLAINT: Weakness and shortness of breath. HISTORY OF PRESENT ILLNESS: This is an 84-year-old male who had a PCI to his LAD in 2004 who present s with worsening weakness. He has been somewhat deconditioned for a long time given his severe back pain, as well as multiple surgeries. He has been on a scooter for a long time; however, he would exe rcise on a stationary bike and [place] [facility] [place] [facility]. He saw Dr. Fuentes barber 2 months ago given upper extremity edema. He and his were concerned that he was developing co ngestive heart failure. Dr. Dill found no laboratory or clinical evidence of this. About a arie h ago, he started noticed some significant shortness of breath, which significantly limited his exerc ise. He saw Dr. Denny about this 2 weeks ago, and he was concerned about his back causing weakness. His weakness and shortness of breath had progressed to the point where he was unable to walk from h is bedroom to the bathroom today. He thus presented to the ED. He has no chest pain. He has had so mewhat of a chronic cough, which is unchanged. He has not noticed any new swelling in his extremitie s. He has not had any weight gain. PAST MEDICAL/SURGICAL HISTORY: 1. Hypertension. 2. Hyperlipidemia. 3. Coronary artery disease, status post PCI to his LAD in 2004, with a drug-eluting stent. 4. Diabetes mellitus, type 2. 5. Osteoarthritis. 6. Bilateral BKA. 7. Spinal fusions. 8. Shoulder surgery. 9. History of a colectomy due to polyps, which were benign. 10. Ventral hernia repair. MEDICATIONS: Please see medication reconciliation. ALLERGIES: Darvon, lactose intolerant. SOCIAL HISTORY: He does not drink alcohol or smoke. He is , lives with his . FAMILY HISTORY: Denies heart disease in his family. REVIEW OF SYSTEMS: A 10-point review of systems was conducted and is negative, except per HPI. PHYSICAL EXAMINATION: VITAL SIGNS: Blood pressure 139/85, heart rate 105, respiration rate 22, satu rating 96% on 2 L, temperature is 37. GENERAL: The patient is a pleasant man who is resting in bed, looks somewhat uncomfortable, somewhat dyspneic. HEENT: Dry mucous membranes. CARDIOVASCULAR: Ir regularly irregular. He is tachycardic. There are no murmurs, rubs, or gallops. PULMONARY: Mild r espiratory distress. He has bilateral basilar crackles. ABDOMEN: Obese. He has a surgical scar, w hich is lateral slightly on the right side above his umbilicus. He is nontender to palpation. SKIN: No rash. : No Sarmiento. NEUROLOGIC: Shows him to be alert and oriented x3. He is moving all ext remities. PSYCHIATRIC: Exam shows normal mood and affect. LABORATORY DATA: Hemoglobin is 9.1, platelets are 286. INR is 1.14. Basic metabolic panel is unrem arkable, creatinine 0.8. BNP is 1130. Troponin 0.02. DATA: 1. I reviewed his chart, including his last visit note with Dr. Dill. 2. I personally viewed and interpreted his EKG. This shows atrial fibrillation. There are no acute ischemic changes. The rate is 118. 3. I personally viewed and interpreted his chest x-ray. This is consistent with CHF. He has border line cardiomegaly. IMPRESSION/PLAN: 1. Atrial fibrillation: This is new onset. Likely accounts for his dyspnea, as well as his weaknes s. He is slightly tachycardic. He has received 10 mg of diltiazem intravenous in the emergency depa rtment. I will start him on oral metoprolol at 25 mg p.o. b.i.d. We will hold his other antihyperte nsives for now. Discussed the risks and benefits of anticoagulation. His CHADS2-VASc score is at le ast a 5 giving him a significant risk of a cerebrovascular accident. Because of this, we will like t o start heparin drip overnight and consider converting to an oral medications soon. 2. Congestive heart failure, somewhat decompensated: Unsure if this is diastolic in the setting of atrial fibrillation or other systolic dysfunction. An echocardiogram has been ordered. He has recei cliff Lasix in the emergency department. We will follow his weights, intake and output. He may need a dditional Lasix. 3. Anemia: It seems like this is new in the last year. Hemoglobin is 9.1 today. This has been sta ble for about a month. The last check before this, it was 12.8, but that was a year ago. He is not having any melena, hematochezia, hematemesis, hematuria. We will follow this closely while starting heparin intravenous. I have ordered fecal occult blood test for him. We will recheck his hemoglobin in the morning. I have also ordered iron studies and B12. It is microcytic. 4. Coronary artery disease, status post percutaneous coronary intervention to his left anterior desc ending: We will hold his aspirin while we are starting heparin. He is on a statin as well. 5. Hypertension: Hold lisinopril for now. 6. Hyperlipidemia: Statin. 7. Diabetes mellitus, type 2: We will hold his metformin. We will follow blood sugars and give him a low-dose sliding scale for the time being. 8. Code status: He would like to be do not resuscitate. I discussed this with both him and his wif e. 9. Venous thromboembolism risk is low while he is on full-dose intravenous heparin. /[id number]/MODL
--- NOTE | 2017-12-31 16:08 | ECHO ---
[email or web address] [address] [address] Main: [phone] Fax: [email or web address] Echocardiogram Name: ALBINO GARCIA MR#: [id number] Study Date: 12/31/2017 Study Time: 03:08 PM Date of : 04/18/1933 Age: 84 year(s) Height: 175.3 cm (69 in.) Weight: 113.4 kg (250 lb.) BSA: 2.27 m2 Gender: Male Examination: Echo Indication: Atrial fibrillation/CHF, hx of 1 stent Image Quality: Technically Difficult Contrast: Requested by: Alin Edge BP: 132 mmHg/69 mmHg Heart Rate: Rhythm: Indication: Atrial fibrillation/CHF, hx of 1 stent Procedure Staff Counseling Services Manager: Ashleigh Uribe RDCS Reading Physician: Ron Dill MD Requesting Provider: Conclusions: Normal size left ventricle. Mild concentric LV hypertrophy. The ejection fraction is estimated to be 55-60 %. No regional wall motion abnormality. The left atrium is mildly dilated. The right atrium is mildly dilated. Mild mitral valve leaflet calcification is present. Mild mitral valve regurgitation is present. Mild aortic cusp calcification is noted. Mild tricuspid regurgitation is present. The pulmonary artery pressure is normal. Trivial pericardial effusion. No significant change compared to 07/29/2010. Measurements: Chambers Valvular Assessment AV/MV Valvular Assessment TV/PV Normal Normal Normal Name Value Range Name Value Range Name Value Range Ao Carisa (MM): 3.6 cm (2.2 cm-3.7 AV Vmax: 0.90 m/s (1 m/s-1.7 TR Vmax: 2.55 mm/s ( - ) cm) m/s) TR PGmax: 26 mmHg ( - ) LVDd (2D): 4.7 cm (4.2 cm-5.9 AV meanP mmHg ( - ) syst. PAP: 36 mmHg ( - ) cm) MV E Vmax: 0.84 m/s ( - ) EF Range: 55-60 % MV A Vmax: 0.26 m/s ( - ) MV E/A: 3.23 ( - ) Continued Measurements: Chambers Valvular Assessment AV/MV Valvular Assessment TV/PV Name Value Name Value Name Value Patient: ALBINO GARCIA Study Date: 12/31/2017 Page 1 of 2 03:08 PM LADs Lon.2 cm MV E' Septal: 0.09 m/s CVP (est.): 10 mmHg LA Area: 25.9 cm2 MV E/E' Septal: 9.50 Additional Vessels Name Value Ao Ascendin.4 cm Findings: Left Ventricle: Normal size left ventricle. Mild concentric LV hypertrophy. Normal global systolic LV function. The ejection fraction is estimated to be 55-60 %. No regional wall motion abnormality. Right Ventricle: Mildly dilated right ventricle. Left Atrium: The left atrium is mildly dilated. Right Atrium: The right atrium is mildly dilated. Mitral Valve: Mild mitral valve leaflet calcification is present. Mild mitral valve regurgitation is present. Aortic Valve: Mild aortic cusp calcification is noted. Tricuspid Valve: The tricuspid valve is normal in appearance and function. Mild tricuspid regurgitation is present. The pulmonary artery pressure is normal. Pulmonic Valve: The pulmonic valve is normal in appearance and function. Aorta: The aorta is normal. Pericardium: Trivial pericardial effusion. There is pericardial fat. (No Signature Object) Patient: ALBINO GARCIA Study Date: 12/31/2017 Page 2 of 2 03:08 PM [id number]
[2017-12-31] MEDS: INSULIN LISPRO 100 UNIT/ML SC SCH (16:51)
[2017-12-31] MEDS ORDERED: DILTIAZEM HCL/D5W 125 ML IV SCH (17:30)
[2017-12-31] MEDS ORDERED: DILTIAZEM 125 MG in D5W 125 ML IV SCH (17:30)
[2017-12-31] MEDS: OMEGA-3 FATTY ACIDS 1,000 MG CAP PO SCH (18:00)
[2017-12-31] MEDS: DOCUSATE SODIUM 100 MG CAP PO SCH (20:48)
[2017-12-31] MEDS: GABAPENTIN 300 MG CAP PO SCH (20:48)
[2017-12-31] MEDS: METOPROLOL TARTRATE 25 MG TAB PO SCH (20:48)
[2017-12-31] MEDS: NORTRIPTYLINE HCL 50 MG CAP PO SCH (20:51)
[2017-12-31] MEDS ORDERED: OMEGA-3 FATTY ACIDS 1,000 MG CAP PO SCH (21:00)
[2017-12-31] MEDS ORDERED: IPRATROPIUM/ALBUTEROL 3 ML DEYVIAL ONE (23:18)
[2017-12-31] MEDS: IPRATROPIUM/ALBUTEROL 3 ML DEYVIAL IH PRN (23:37)
[2018-01-01 05:59] LABS: PLATELET COUNT 301 10^3/uL (150-400)
[2018-01-01] MEDS: METOPROLOL TARTRATE 25 MG TAB PO SCH ×2 (09:37→20:29)
[2018-01-01] MEDS: GABAPENTIN 300 MG CAP PO SCH ×2 (09:37→20:28)
[2018-01-01] MEDS: INSULIN LISPRO 100 UNIT/ML SC SCH ×3 (09:40→17:32)
--- NOTE | 2018-01-01 12:15 | PDCARPN ---
Cardiology Progress Note Assessment/Plan: Mr. Ramos is an 84 year-old male familiar to me from a longstanding outpatient relationship. He underwent PCI of the LAD in 2004. He has been stable with respect to his CAD. I last saw him in October and he was doing well. The plan at that time was for routine annual followup. He presented to the emergency room yesterday with a complaint of markedly worsening weakness and fatigue. He also has had increasing dyspnea with exertion over the past month or so. It has progressed to the point where he experiences dyspnea with activities such as walking short distances inside his home. He has not had orthopnea or PND. He has not developed obvious signs of fluid retention. In the emergency room, his ECG demonstrated atrial fibrillation with a ventricular rate of 118 bpm. He was treated with intravneous diltiazem. Oral metoprolol has been added. He was also started on intravenous heparin. Today, his ventricular rate is well-controlled but his atrial fibrillation is persistent. His BNP is moderately elevated at 1130 (it was 279 in October of this year). He received a single dose of intravenous Lasix in the emergency room. An echocardiogram performed yesterday demonstrates normal left ventricular size with an ejection fraction of 55-60%. He has mild bi-atrial enlargement. He has age related valvular changes without hemodynamically significant valvular dysfunction. He has not any chest discomfort suggestive of angina. Serial troponins have been normal. Persistent Atrial Fibrillation- This is a new issue for him. He is now adequately rate controlled and anticoagulated. He will be scheduled for a JORI/ cardioversion hopefully for later today. Will plan to add beta rosa therapy to his baseline medication regimen. If he has recurrent atrial fibrillation, consideration will be given to amiodarone and a repeat cardioversion. Acute CHF- Suspect this is on the basis of diastolic dysfunction which has been exacerbated by his atrial fibrillation. At presentation, he appeared to be only mildly volume overloaded. Will monitor his status for evidence that he needs routine diuretic dosing. Coronary Artery Disease- He has been stable since his PCI in 2004. He has not had any recurrent ischemic episodes or need for repeat revascularization procedures. His current troponins are negative. A Lexiscan nuclear stress test from October of 2016 demonstrated a small focus of mild reversibility in the inferior wall. Hypertension- Controlled on current meds. Hyperlipidemia- A lipid panel from August of this year demonstrated a total cholesterol of 113 with HDL 33, LDL 40, and triglycerides 202 on his current simvastatin dosage. 01/01/18 12:13 Subjective: No CV complaints today. Time Spent with Patient: greater than 25 minutes Time Spent with Patient: Greater than 25 minutes spent on this patients care, greater than 50% of time spent counseling, educating, and coordinating care regarding the above mentioned plan. Objective: Vital Signs (8 Hrs) Temp Pulse Resp BP Pulse Ox 01/01/18 10:59 85 17 100 01/01/18 07:53 36.6 C 96 20 111/85 H 96 Intake/Output (24 Hrs) 12/31/17 01/01/18 01/02/18 05:59 05:59 05:59 Intake Total 1050 Output Total 1050 Balance 0 Intake: Oral (ml) 1050 Output: Urine (ml) 1050 Urinal 1050 Other: Weight 119.2 kg Intake Quantity Yes Sufficient Number of Voids Urinal 3 Result Diagrams: 01/01/18 05:52 01/01/18 05:52 Cardiac Labs: Cardiac Lab Results (72 Hrs) 01/01/18 12/31/17 05:52 23:20 Troponin I 0.024 0.018 - Physical Exam Constitutional: no apparent distress Eyes: anicteric sclera Ears, Nose, Mouth, Throat: moist mucous membranes Cardiovascular: no murmurs, no gallops, irregularly irregular Respiratory: clear to auscultate bilat Gastrointestinal: normoactive bowel sounds, no tenderness, no masses Skin: no edema Neurologic: AAOx3 Psychiatric: not anxious ICD10 Worksheet Patient Problems: Problems Problem Status Onset Atrial fibrillation Acute Pulmonary edema Acute Chronic Disease Mgmt/Transitional Care Acute Osteoarthritis of left knee Acute Osteoarthritis of right knee Acute
--- NOTE | 2018-01-01 13:35 | PDHPUP ---
History & Physical Update H&P update statement: This history and physical update is based on an assessment of the patient which was completed after admission or registration (within 24 hours), but prior to the surgery/procedure. H&P update: H&P reviewed & patient examined, no change in patient's condition since H&P completed
[2018-01-01] MEDS ORDERED: ATROPINE SULFATE 1 MG/10 ML SYR ONE (13:57)
[2018-01-01] MEDS ORDERED: PROPOFOL 200 MG/20 ML VIAL ONE (13:59)
[2018-01-01] MEDS ORDERED: ONDANSETRON 4 MG/2 ML VIAL IVP PRN (14:03)
[2018-01-01] MEDS ORDERED: NALOXONE HCL 0.4 MG/ML INJ IVP PRN (14:03)
[2018-01-01] MEDS ORDERED: PROMETHAZINE HCL 25 MG/ML INJ IVP PRN (14:03)
[2018-01-01] MEDS ORDERED: fentaNYL 100 MCG/2 ML INJ IVP PRN (14:03)
--- NOTE | 2018-01-01 14:03 | PDANEPAE ---
ANE Past Medical History - Cardiovascular History Hx Hypertension: Yes Hx Arrhythmias: No Hx Chest Pain: No Hx Coronary Artery / Peripheral Vascular Disease: Yes Hx CHF / Valvular Disease: No Hx Palpitations: No - Pulmonary History Hx COPD: No Hx Asthma/Reactive Airway Disease: No Hx Recent Upper Respiratory Infection: No Hx Oxygen in Use at Home: No Hx Sleep Apnea: No - Neurologic History Hx Cerebrovascular Accident: No Hx Seizures: No Hx Dementia: No - Endocrine History Hx Diabetes: Yes Obesity: moderate Endocrine History Comment: DMII - Renal History Hx Renal Disorders: No - Liver History Hx Hepatic Disorders: No - Neurological & Psychiatric Hx Hx Neurological and Psychiatric Disorders: Yes Neurological / Psychiatric History Comment: bilateral neuropathy hands and feet - Cancer History Hx Cancer: No - Congenital Disorder History Hx Congenital Disorders: No - GI History Hx Gastrointestinal Disorders: Yes Gastrointestinal History Comment: gerd - Other Health History Other Health History: upper and lower dentures - Chronic Pain History Chronic Pain: Yes (everywhere) - Surgical History Prior Surgeries: back fusion. neck fusion. bilateral shoulders repairs. right total knee. colonectomy. cardiac stent 10-15 years ago. right hip fusion ANE Review of Systems Review of Systems: ANE Patient History - Allergies Allergies/Adverse Reactions: DARVON Allergy (Uncoded 12/31/17 11:16) Other-Enter Comments LACTOSE INTOL Allergy (Uncoded 12/31/17 11:16) Other-Enter Comments - Home Medications Home Medications: Docusate Sodium [Colace 100 MG (*)] 100 mg PO BID 03/07/13 [Last Taken 12/31/17 AM] Herbals/Supplements -Info Only 1 each PO AD 03/07/13 [Last Taken 03/16/13 1] Lisinopril [Zestril 10 mg (*)] 10 mg PO DAILY 03/07/13 [Last Taken 12/29/17] Nortriptyline HCl [Pamelor 50 mg (*)] 50 mg PO BID 03/07/13 [Last Taken AM] [place]-3 Fatty Acids [Fish Oil 1000 mg (*)] 1,000 mg PO BIDMEAL 03/07/13 [Last Taken 12/31/17] Simvastatin [Zocor 20 mg] 20 mg PO DAILY 03/07/13 [Last Taken 12/31/17 AM] metFORMIN HCL [Glucophage 500 mg (*)] 1,000 mg PO BIDMEAL 03/07/13 [Last Taken 12/31/17 AM] Calcium Carbonate [Tums 500MG (*)] 1,000 mg PO DAILY PRN 03/18/13 [Last Taken ] Multivitamins [Multivitamin (*)] 1 each PO DAILY 11/01/16 [Last Taken 12/31/17] Naproxen Sodium [Aleve 220 MG (*)] 440 mg PO HS 11/01/16 [Last Taken 12/29/17] Aspirin [Aspirin 81mg (*)] 81 mg PO HS 12/31/17 [Last Taken 12/29/17] Cyanocobalamin (Vitamin B-12) [Vitamin B-12] 1,000 mcg PO DAILY 12/31/17 [Last Taken 12/31/17] Gabapentin [Neurontin 300 MG (*)] 300 mg PO DAILY 12/31/17 [Last Taken 12/31/17 AM] Gabapentin [Neurontin 300 MG (*)] 600 mg PO HS 12/31/17 [Last Taken 12/30/17] Omeprazole 40 mg PO DAILY 12/31/17 [Last Taken 12/31/17 AM] rOPINIRole HCL [Requip] 0.25 mg PO HS 12/31/17 [Last Taken 12/30/17] - NPO status NPO Status: no food or drink >8 hours - Anes Hx Anes Hx: no prior problems - Smoking Hx Smoking Status: Former smoker - Family Anes Hx Family Hx Anesthesia Complications: none ANE Labs/Vital Signs - Labs Result Diagrams: 01/01/18 05:52 01/01/18 05:52 - Vital Signs Blood Pressure: 98/57 Heart Rate: 86 Respiratory Rate: 20 O2 Sat (%): 98 Height: 175.26 cm Weight: 119.2 kg ANE Physical Exam - Airway Neck exam: decreased ROM Mallampati Score: Class 3 Mouth exam: dentures - Pulmonary Pulmonary: reduced air movement - Cardiovascular Cardiovascular: irregularly irregular - ASA Status ASA Status: III ANE Anesthesia Plan Anesthesia Plan: GA with mask
--- NOTE | 2018-01-01 14:22 | PDTEE1 ---
JORI Cardioversion Procedure Procedure: electrical cardioversion, transesophageal echo Indications: atrial fibrillation Consent: signed and in chart Anticoagulation: heparin Procedural Details: Pads were placed in anterior-posterior position. JORI probe was advanced and standard images obtained. There is no evidence of left atrial or left atrial appendage thrombus. Synchronized cardioversion attempt #1: 200J Results: normal sinus rhythm Conclusions: successful cardioversion Patient Problems: Problems Problem Status Onset Atrial fibrillation Acute Pulmonary edema Acute Chronic Disease Mgmt/Transitional Care Acute Osteoarthritis of left knee Acute Osteoarthritis of right knee Acute
--- NOTE | 2018-01-01 14:26 | CPEKG ---
Heart Rate: 90 RR Interval: 667 P-R Interval: 196 QRSD Interval: 116 QT Interval: 372 QTC Interval: 455 P [place]: 36 QRS [place]: -49 T Wave [place]: 48 EKG Severity - ABNORMAL ECG - EKG Impression: SINUS RHYTHM EKG Impression: NONSPECIFIC IVCD WITH LAD EKG Impression: LOW VOLTAGE IN FRONTAL LEADS Electronically Signed By: Ismael Hwang 01-Jan-2018 15:26:17
--- NOTE | 2018-01-01 14:32 | POSTANESTH ---
Post Anesthetic Evaluation Cardiovascular Status: Normal, Stable Respiratory Status: Similar to Pre-op Cond. Level of Consciousness/Mental Status: Can Participate in Eval, Moderately Sleepy Pain Control: Adequate, Prn Tx Ordered Nausea/Vomiting Control: Adequate, Prn Tx Ordered Complications Possibly Related to Anesthesia: None Noted
--- NOTE | 2018-01-01 14:45 | ASMTCMCOM ---
CM Note CM Note Notes: 01/01/2018 Case Management Note Pt admitted for treatment of afib and pulmonary edema. Per PT pt uses a scooter in his home at baseline. Met w/pt during rounds. Discussed PT recommendation for SNF rehab. Pt in agreement, requested case management discuss with . Met w/ Caroline [phone]. Caroline in agreement. Pt has previous stay in the [facility]. Faxed referral. The [facility] is preferred facility. Faxed referral at request to [facility] in [place] as a back up. Case Management d/c poc: SNF rehab pending acceptance. Case Management to follow. Date Signed: 01/01/2018 02:44 PM Electronically Signed By:Barb Espino RN
--- NOTE | 2018-01-01 15:13 | HOSPPROG ---
Hospitalist Progress Note Assessment/Plan: # a-fib with RVR s/p JORI/DCCV today, now in NSR - cont metop today - AC with eliquis # debility/weakness - working with PT - not safe for dc home - suspect d/t cardiac issues - follow with PT/OT # acute dCHF exacerbation - d/t a-fib - recheclk CXR tomorrow am - may need more lasix # anemia, Fe defic - stable on heparin gtt overnight - start FeSo4 - should get eval - can be as outpatient - occult stool pending # CAD s/p PCI to LAD - hold asa now that on AC - cont statin # DM2 - hold metformin - cont SSI lispro, follow glucs # neuropathy - gabapentin Subjective: s/p JORI/DCCV today; still weak but stronger Objective: Vital Signs Temp Pulse Resp BP Pulse Ox 36.8 C 86 20 98/57 L 98 01/01/18 12:19 01/01/18 14:03 01/01/18 14:03 01/01/18 14:03 01/01/18 14:03 Laboratory Results 01/01/18 05:52 01/01/18 05:52 12/31/17 01/01/18 01/02/18 05:59 05:59 05:59 Intake Total 1050 Output Total 1050 Balance 0 PT 14.8 SEC (12.0-15.0) 12/31/17 11:55 INR 1.14 (0.83-1.16) 12/31/17 11:[address] Dill op note reviewed ECG personally reviewed ICD10 Worksheet Patient Problems: Problems Problem Status Onset Atrial fibrillation Acute Pulmonary edema Acute Chronic Disease Mgmt/Transitional Care Acute Osteoarthritis of left knee Acute Osteoarthritis of right knee Acute
[2018-01-01] MEDS ORDERED: BISACODYL 10 MG SUPP PR PRN (15:26)
[2018-01-01] MEDS ORDERED: LACTULOSE 20 GM/30 ML UDCUP PO PRN (15:26)
[2018-01-01] MEDS ORDERED: MAGNESIUM HYDROXIDE 30 ML UDCUP PO PRN (15:26)
[2018-01-01] MEDS: ATORVASTATIN CALCIUM 10 MG TAB PO SCH (15:53)
[2018-01-01] MEDS: NORTRIPTYLINE HCL 50 MG CAP PO SCH ×2 (15:53→20:27)
[2018-01-01] MEDS: DOCUSATE SODIUM 100 MG CAP PO SCH ×2 (15:54→20:29)
[2018-01-01] MEDS: PANTOPRAZOLE SODIUM 40 MG TAB PO SCH (15:54)
[2018-01-01] MEDS: OMEGA-3 FATTY ACIDS 1,000 MG CAP PO SCH ×2 (15:54→16:51)
--- NOTE | 2018-01-01 16:00 | PDMN ---
Medical Necessity Medical necessity: Change to IP, as of 01/01/18, per & MCG M-190; los >2 mn for ongoing management of CHF exacerbation, weakness, anemia & AFIB w/RVR s/p JORI/DCCV; requiring further monitoring, followup CXR, med management & therapies ; comorbid advanced age, CAD s/p PCI, diabetes & neuropathy
[2018-01-01] MEDS: POLYETHYLENE GLYCOL 3350 17 GM PKT PO PRN (16:51)
[2018-01-01] MEDS: APIXABAN 5 MG TAB PO SCH (20:28)
[2018-01-01] MEDS: SENNOSIDES/DOCUSATE SODIUM TAB PO SCH (22:14)
[2018-01-02] MEDS: INSULIN LISPRO 100 UNIT/ML SC SCH ×3 (08:30→17:15)
[2018-01-02] MEDS: PANTOPRAZOLE SODIUM 40 MG TAB PO SCH (08:32)
[2018-01-02] MEDS: FERROUS SULFATE 325 MG TAB PO SCH (08:33)
[2018-01-02] MEDS: METOPROLOL TARTRATE 25 MG TAB PO SCH ×2 (08:33→21:35)
[2018-01-02] MEDS: SENNOSIDES/DOCUSATE SODIUM TAB PO SCH ×2 (08:33→21:35)
[2018-01-02] MEDS: OMEGA-3 FATTY ACIDS 1,000 MG CAP PO SCH ×2 (08:33→17:49)
[2018-01-02] MEDS: ATORVASTATIN CALCIUM 10 MG TAB PO SCH (08:33)
[2018-01-02] MEDS: NORTRIPTYLINE HCL 50 MG CAP PO SCH ×2 (08:34→21:35)
[2018-01-02] MEDS: APIXABAN 5 MG TAB PO SCH ×2 (08:34→21:35)
[2018-01-02] MEDS: DOCUSATE SODIUM 100 MG CAP PO SCH ×2 (08:34→21:36)
[2018-01-02] MEDS: GABAPENTIN 300 MG CAP PO SCH ×2 (08:34→21:36)
[2018-01-02] MEDS: IPRATROPIUM/ALBUTEROL 3 ML DEYVIAL IH PRN (09:06)
--- NOTE | 2018-01-02 09:44 | HOSPPROG ---
Hospitalist Progress Note Assessment/Plan: # a-fib with RVR s/p JORI/DCCV yesterday, remains in NSR today - cont metop - AC with bob # debility/weakness - working with PT - not safe for dc home - suspect d/t cardiac issues - follow with PT/OT # acute dCHF exacerbation - d/t a-fib, CXR this am pers reveiwed / interp- edema noted, BNP trending down from 1300 to 769. Appears volume up. - repeat lasix 20 mg IV once today. Per pt and , he responded well to 40 mg IV 2 days ago - follow i&O's, daily weights # anemia, Fe defic - stable on heparin gtt overnight - start FeSo4 - outpt colonoscopy recommended - occult stool pending # CAD s/p PCI to LAD - holding asa now that on AC - cont statin # DM2 - hold metformin - cont SSI lispro, follow glucs # neuropathy - gabapentin Subjective: Pt doing ok. He endorses orthopnea. No CP, some SOB, which his notes more than he does. No fevers/chills. Objective: Vital Signs Temp Pulse Resp BP Pulse Ox 36.4 C 104 H 20 112/79 99 01/02/18 07:17 01/02/18 09:07 01/02/18 09:07 01/02/18 07:17 01/02/18 09:07 Laboratory Results 01/02/18 03:36 01/02/18 03:36 01/01/18 01/02/18 01/03/18 05:59 05:59 05:59 Intake Total 650 Balance 650 PT 14.8 SEC (12.0-15.0) 12/31/17 11:55 INR 1.14 (0.83-1.16) 12/31/17 11:55 - Physical Exam Constitutional: no apparent distress Eyes: PERRL Ears, Nose, Mouth, Throat: moist mucous membranes Cardiovascular: regular rate and rhythym, JVD Respiratory: no respiratory distress, inspiratory crackles Gastrointestinal: normoactive bowel sounds, soft, non-tender abdomen Skin: warm Musculoskeletal: full muscle strength Neurologic: AAOx3 Psychiatric: interacting appropriately ICD10 Worksheet Patient Problems: Problems Problem Status Onset Atrial fibrillation Acute Pulmonary edema Acute Chronic Disease Mgmt/Transitional Care Acute Osteoarthritis of left knee Acute Osteoarthritis of right knee Acute
[2018-01-02] MEDS ORDERED: FUROSEMIDE 20 MG/2 ML VIAL IVP ONE (09:52)
--- NOTE | 2018-01-02 11:48 | ASMTCMCOM ---
CM Note CM Note Notes: Pts case discussed in tx rounds. [facility] and [facility] has accepted pt. CM met w/ pt and for dispo planning. CM communicated this information to them. Pt and would like to go to [facility]. CM notified [facility] that pt and has chosen another facility. CM to follow. Plan: [facility] Date Signed: 01/02/2018 11:48 AM Electronically Signed By:ANTOINE Vázquez
--- NOTE | 2018-01-02 17:15 | PDCARPN ---
Cardiology Progress Note Assessment/Plan: Mr. Ramos is an 84 year-old male familiar to me from a longstanding outpatient relationship. Paroxysmal Atrial Fibrillation: status post JORI guided cardioversion yesterday; maintaining sinus rhythm so far. Beta-rosa therapy has been added to his baseline medication regimen. - If he has recurrent atrial fibrillation, consideration will be given to amiodarone and a repeat cardioversion. - Systemic anticoagulation with Eliquis has been started; I provided him with a card for a free 30-day supply. He will be going to an inpatient rehabilitation facility for strengthening following this hospital stay. He can use the discount card for Eliquis to fill his first prescription upon discharge from that facility. Will decide in the office-setting about his chronic anticoagulation regimen. If Eliquis proves to be cost prohibitive, we will replace it with warfarin and have him followed in the anticoagulation clinic. Chronic Diastolic CHF- Suspect this has been exacerbated by his atrial fibrillation. At presentation, he appeared to be only mildly volume overloaded. Will monitor his status for evidence that he needs routine diuretic dosing. - Received a 20 mg dose of IV furosemide today. Mitral Regurgitation: JORI yesterday demonstrated at least moderate MR. - Will follow longitudinally with serial echo. Doubt he is a candidate for MVR surgery but might be a candidate for MitraClip. Coronary Artery Disease- He has been stable since his PCI in 2004. He has not had any recurrent ischemic episodes or need for repeat revascularization procedures. His current troponins are negative. A Lexiscan nuclear stress test from October of 2016 demonstrated a small focus of mild reversibility in the inferior wall. Hypertension- Controlled on current meds. Hyperlipidemia- A lipid panel from August of this year demonstrated a total cholesterol of 113 with HDL 33, LDL 40, and triglycerides 202 on his current simvastatin dosage. 01/02/18 17:23 Objective: Vital Signs (8 Hrs) Temp Pulse Resp BP Pulse Ox 01/02/18 16:00 36.6 C 98 26 H 124/78 H 2 L 01/02/18 11:44 37.0 C 97 16 115/70 94 01/02/18 10:48 96 01/02/18 10:41 95 01/02/18 09:07 104 H 20 99 Intake/Output (24 Hrs) 01/01/18 01/02/18 01/03/18 05:59 05:59 05:59 Intake Total 650 Output Total 800 Balance 650 -800 Intake: Oral (ml) 650 Output: Urine (ml) 800 Toilet 800 Other: Weight 118.9 kg Number of Voids Toilet 1 Number of Stools Toilet 1 1 Result Diagrams: 01/02/18 03:36 01/02/18 03:36 - Physical Exam Constitutional: no apparent distress Eyes: anicteric sclera Ears, Nose, Mouth, Throat: moist mucous membranes Cardiovascular: regular rate and rhythm Respiratory: clear to auscultate bilat Gastrointestinal: normoactive bowel sounds, no tenderness, no masses Skin: no edema Neurologic: AAOx3 Psychiatric: not anxious ICD10 Worksheet Patient Problems: Problems Problem Status Onset Atrial fibrillation Acute Pulmonary edema Acute Chronic Disease Mgmt/Transitional Care Acute Osteoarthritis of left knee Acute Osteoarthritis of right knee Acute
--- NOTE | 2018-01-02 17:23 | ECHO ---
[email or web address] [address] [address] Main: [phone] Fax: Transesophageal Echocardiography Name: ALBINO GARCIA MR#: [id number] Study Date: 01/01/2018 Study Time: 01:57 PM Date of : 04/18/1933 Age: 84 year(s) Height: ( ) Weight: ( ) BSA: Gender: Male Examination: JORI Indication: pre cardioversion; r/o IVELISSE clot Image Quality: Contrast: I.V. dose of agitated saline Requested by: Rno Dill Heart Rate: Rhythm: BP: / Procedure Staff Solar System Designer: Maureen Mansfield [facility] Reading Physician: Ron Dill MD Requesting Provider: JORI Exam Details Contrast: I.V. dose of agitated saline Conclusions: Normal global systolic LV function. Dilated right ventricle with reduced systolic function. Left atrial enlargement. An agitated saline study was performed and was negative for intracardiac shunting. No thrombus is noted in the left atrium. No thrombus in left appendage. Focal mitral valve leaflet thickening is present. Moderate to severe mitral regurgitation. The aortic valve is tri-leaflet. Diffuse aortic cusp thickening is noted. Trivial aortic valve regurgitation. Mild tricuspid regurgitation is present. Mild atheroma noted in the ascending aorta. Trivial pericardial effusion. Measurements: Chambers Valvular Assessment AV/MV Valvular Assessment TV/PV Normal Normal Normal Name Value Range Name Value Range Name Value Range TR Vmax: 2.77 mm/s ( - ) TR PGmax: 31 mmHg ( - ) Additional Measurements: Patient: ALBINO GARCIA Study Date: 01/01/2018 Page 1 of 2 01:57 PM Findings: Left Ventricle: Normal global systolic LV function. Right Ventricle: Dilated right ventricle with reduced systolic function. Left Atrium: Left atrial enlargement. An agitated saline study was performed and was negative for intracardiac shunting. No thrombus is noted in the left atrium. Left Atrial Appendage: No thrombus in left appendage. Right Atrium: Right atrial enlargement. Mitral Valve: Focal mitral valve leaflet thickening is present. Moderate to severe mitral regurgitation. Aortic Valve: The aortic valve is tri-leaflet. Diffuse aortic cusp thickening is noted. Trivial aortic valve regurgitation. Tricuspid Valve: The tricuspid valve appears normal. Mild tricuspid regurgitation is present. Aorta: Mild atheroma noted in the ascending aorta. Pericardium: Trivial pericardial effusion. l1n (No Signature Object) Patient: ALBINO GARCIA Study Date: 01/01/2018 Page 2 of 2 01:57 PM [id number]
[2018-01-02] MEDS: POLYETHYLENE GLYCOL 3350 17 GM PKT PO PRN (17:53)
[2018-01-03] MEDS: INSULIN LISPRO 100 UNIT/ML SC SCH ×3 (09:22→17:09)
[2018-01-03] MEDS: ATORVASTATIN CALCIUM 10 MG TAB PO SCH (09:22)
[2018-01-03] MEDS: APIXABAN 5 MG TAB PO SCH ×2 (09:22→21:07)
[2018-01-03] MEDS: GABAPENTIN 300 MG CAP PO SCH ×2 (09:22→21:08)
[2018-01-03] MEDS: DOCUSATE SODIUM 100 MG CAP PO SCH ×2 (09:22→21:08)
[2018-01-03] MEDS: OMEGA-3 FATTY ACIDS 1,000 MG CAP PO SCH ×2 (09:22→17:09)
[2018-01-03] MEDS: METOPROLOL TARTRATE 25 MG TAB PO SCH ×2 (09:22→21:07)
[2018-01-03] MEDS: FERROUS SULFATE 325 MG TAB PO SCH (09:22)
[2018-01-03] MEDS: NORTRIPTYLINE HCL 50 MG CAP PO SCH ×2 (09:23→21:07)
[2018-01-03] MEDS: PANTOPRAZOLE SODIUM 40 MG TAB PO SCH (09:23)
[2018-01-03] MEDS: SENNOSIDES/DOCUSATE SODIUM TAB PO SCH ×2 (09:23→22:15)
--- NOTE | 2018-01-03 10:53 | HOSPPROG ---
Hospitalist Progress Note Assessment/Plan: # a-fib with RVR s/p JORI/DCCV, remains in NSR today - cont metop - AC with eliquis # debility/weakness - working with PT - not safe for dc home - suspect d/t cardiac issues - planning for SNF # acute on chronic dCHF - mildly volume up yesterday, s/p 20 mg IV lasix - continue low dose oral lasix today, follow lytes, Cr - follow i&O's, daily weights # ahrf - on 2 LPM, suspect this is multifactorial, HF, suspect RENETTA and OHS, +/- underlying lung disease - check abg - send Resp viral panel - schedule duonebs QID # anemia, Fe defic - cont FeSo4 - outpt colonoscopy recommended - occult stool pending # CAD s/p PCI to LAD - holding asa now that on AC - cont statin # DM2 - hold metformin - cont SSI lispro, follow glucs # neuropathy - gabapentin # DNR # Dispo - cont inpt, to SNF likely tomorrow Subjective: Pt says he feels fine. His worries he is still having trouble breathing. He denies orthopnea. Still with mild productive cough. Objective: Vital Signs Temp Pulse Resp BP Pulse Ox 35.9 C L 101 H 15 148/94 H 93 01/03/18 08:00 01/03/18 08:00 01/03/18 08:00 01/03/18 08:00 01/03/18 08:00 Laboratory Results 01/02/18 03:36 01/03/18 03:41 01/02/18 01/03/18 01/04/18 05:59 05:59 05:59 Intake Total 650 1220 Output Total 1000 Balance 650 220 PT 14.8 SEC (12.0-15.0) 12/31/17 11:55 INR 1.14 (0.83-1.16) 12/31/17 11:55 - Physical Exam Constitutional: no apparent distress Eyes: PERRL Ears, Nose, Mouth, Throat: moist mucous membranes Cardiovascular: regular rate and rhythym Respiratory: no respiratory distress, reduced air movement Gastrointestinal: normoactive bowel sounds, soft, non-tender abdomen Skin: warm Musculoskeletal: full muscle strength Neurologic: AAOx3 Psychiatric: interacting appropriately ICD10 Worksheet Patient Problems: Problems Problem Status Onset Atrial fibrillation Acute Pulmonary edema Acute Chronic Disease Mgmt/Transitional Care Acute Osteoarthritis of left knee Acute Osteoarthritis of right knee Acute
[2018-01-03] MEDS: FUROSEMIDE 20 MG TAB PO SCH (13:46)
[2018-01-03] MEDS ORDERED: IPRATROPIUM/ALBUTEROL 3 ML DEYVIAL ONE (14:32)
[2018-01-03] MEDS: IPRATROPIUM/ALBUTEROL 3 ML DEYVIAL IH SCH ×2 (15:48→20:27)
[2018-01-03] MEDS: POLYETHYLENE GLYCOL 3350 17 GM PKT PO PRN (15:59)
--- NOTE | 2018-01-03 16:03 | PDCARPN ---
Cardiology Progress Note Assessment/Plan: Mr. Ramos is an 84 year-old male familiar to me from a longstanding outpatient relationship. Paroxysmal Atrial Fibrillation: status post JORI guided cardioversion 01/01; maintaining sinus rhythm so far. Beta-rosa therapy has been added to his baseline medication regimen. - If he has recurrent atrial fibrillation, consideration will be given to amiodarone and a repeat cardioversion. - Systemic anticoagulation with Eliquis has been started; I provided him with a card for a free 30-day supply. He will be going to an inpatient rehabilitation facility for strengthening following this hospital stay. He can use the discount card for Eliquis to fill his first prescription upon discharge from that facility. Will decide in the office-setting about his chronic anticoagulation regimen. If Eliquis proves to be cost prohibitive, we will replace it with warfarin and have him followed in the anticoagulation clinic. Chronic Diastolic CHF- Suspect this was exacerbated by his atrial fibrillation. At presentation, he appeared to be only mildly volume overloaded. - Would continue low-dose PO furosemide at discharge. Mitral Regurgitation: JORI 01/01 demonstrated at least moderate MR. - Will follow longitudinally with serial echo. Doubt he is a candidate for MVR surgery but might be a candidate for MitraClip. Coronary Artery Disease- He has been stable since his PCI in 2004. He has not had any recurrent ischemic episodes or need for repeat revascularization procedures. Troponin levels this admission were negative. A Lexiscan nuclear stress test from October of 2016 demonstrated a small focus of mild reversibility in the inferior wall. Hypertension- Controlled on current meds. Hyperlipidemia- A lipid panel from August of this year demonstrated a total cholesterol of 113 with HDL 33, LDL 40, and triglycerides 202 on his current simvastatin dosage. 01/03/18 16:00 Reviewed/Discussed With: family Time Spent with Patient: greater than 25 minutes Time Spent with Patient: Greater than 25 minutes spent on this patients care, greater than 50% of time spent counseling, educating, and coordinating care regarding the above mentioned plan. Objective: Vital Signs (8 Hrs) Temp Pulse Resp BP Pulse Ox 01/03/18 14:28 122 H 92 01/03/18 12:00 36.3 C 92 16 117/71 96 Intake/Output (24 Hrs) 01/02/18 01/03/18 01/04/18 05:59 05:59 05:59 Intake Total 650 1220 Output Total 1000 200 Balance 650 220 -200 Intake: Oral (ml) 650 1220 Output: Urine (ml) 1000 200 Toilet 1000 200 Other: Weight 118.4 kg Number of Voids Toilet 1 3 1 Number of Stools Toilet 1 0 Result Diagrams: 01/02/18 03:36 01/03/18 03:41 - Physical Exam Constitutional: no apparent distress Eyes: anicteric sclera Ears, Nose, Mouth, Throat: moist mucous membranes Cardiovascular: regular rate and rhythm, no murmurs, no gallops Respiratory: clear to auscultate bilat Gastrointestinal: normoactive bowel sounds, no tenderness, no masses Skin: no edema Neurologic: AAOx3 Psychiatric: not anxious ICD10 Worksheet Patient Problems: Problems Problem Status Onset Atrial fibrillation Acute Pulmonary edema Acute Chronic Disease Mgmt/Transitional Care Acute Osteoarthritis of left knee Acute Osteoarthritis of right knee Acute
[2018-01-04] MEDS: IPRATROPIUM/ALBUTEROL 3 ML DEYVIAL IH SCH ×2 (05:57→11:01)
[2018-01-04] MEDS: APIXABAN 5 MG TAB PO SCH (08:14)
[2018-01-04] MEDS: OMEGA-3 FATTY ACIDS 1,000 MG CAP PO SCH (08:14)
[2018-01-04] MEDS: ATORVASTATIN CALCIUM 10 MG TAB PO SCH (08:14)
[2018-01-04] MEDS: METOPROLOL TARTRATE 25 MG TAB PO SCH (08:15)
[2018-01-04] MEDS: NORTRIPTYLINE HCL 50 MG CAP PO SCH (08:15)
[2018-01-04] MEDS: GABAPENTIN 300 MG CAP PO SCH (08:15)
[2018-01-04] MEDS: DOCUSATE SODIUM 100 MG CAP PO SCH (08:15)
[2018-01-04] MEDS: FERROUS SULFATE 325 MG TAB PO SCH (08:15)
[2018-01-04] MEDS: SENNOSIDES/DOCUSATE SODIUM TAB PO SCH (08:15)
[2018-01-04] MEDS: PANTOPRAZOLE SODIUM 40 MG TAB PO SCH (08:15)
[2018-01-04] MEDS: FUROSEMIDE 20 MG TAB PO SCH (08:15)
[2018-01-04] MEDS: INSULIN LISPRO 100 UNIT/ML SC SCH ×2 (08:58→12:40)
--- NOTE | 2018-01-04 12:25 | CPEKG ---
Heart Rate: 90 RR Interval: 667 P-R Interval: 180 QRSD Interval: 112 QT Interval: 360 QTC Interval: 441 P [place]: 32 QRS [place]: -45 T Wave [place]: 54 EKG Severity - ABNORMAL ECG - EKG Impression: SINUS RHYTHM EKG Impression: MULTIPLE ATRIAL PREMATURE COMPLEXES EKG Impression: INCOMPLETE RIGHT BUNDLE BRANCH BLOCK EKG Impression: LOW VOLTAGE THROUGHOUT Electronically Signed By: Ismael Hwang 04-Jan-2018 13:23:35
--- NOTE | 2018-01-04 12:50 | PDIAF ---
- Diagnosis Diagnosis: A fib, chronic diastolic HF Code Status: Do Not Resuscitate - Medication Management Discharge Medications: Medications to Continue on Transfer Docusate Sodium [Colace 100 MG (*)] 100 mg PO BID 03/07/13 [Last Taken 12/31/17 AM] Nortriptyline HCl [Pamelor 50 mg (*)] 50 mg PO BID 03/07/13 [Last Taken AM] [place]-3 Fatty Acids [Fish Oil 1000 mg (*)] 1,000 mg PO BIDMEAL 03/07/13 [Last Taken 12/31/17] Simvastatin [Zocor 20 mg] 20 mg PO DAILY 03/07/13 [Last Taken 12/31/17 AM] metFORMIN HCL [Glucophage 500 mg (*)] 1,000 mg PO BIDMEAL 03/07/13 [Last Taken 12/31/17 AM] Calcium Carbonate [Tums 500MG (*)] 1,000 mg PO DAILY PRN 03/18/13 [Last Taken ] Multivitamins [Multivitamin (*)] 1 each PO DAILY 11/01/16 [Last Taken 12/31/17] Cyanocobalamin (Vitamin B-12) [Vitamin B-12] 1,000 mcg PO DAILY 12/31/17 [Last Taken 12/31/17] Gabapentin [Neurontin 300 MG (*)] 300 mg PO DAILY 12/31/17 [Last Taken 12/31/17 AM] Gabapentin [Neurontin 300 MG (*)] 600 mg PO HS 12/31/17 [Last Taken 12/30/17] Omeprazole 40 mg PO DAILY 12/31/17 [Last Taken 12/31/17 AM] rOPINIRole HCL [Requip 0.25mg (RX)] 0.25 mg PO HS 12/31/17 [Last Taken 12/30/17] Acetaminophen [Tylenol 325mg (*)] 650 mg PO Q4HRS PRN tab 01/04/18 [Last Taken Unknown] Apixaban [Eliquis] 5 mg PO BID #60 tab 01/04/18 [Last Taken Unknown] Ferrous Sulfate [Ferrous Sulf 325 MG (*)] 325 mg PO DAILY #30 tab 01/04/18 [ Last Taken Unknown] Furosemide [Lasix 20 MG (*)] 20 mg PO DAILY #30 tab 01/04/18 [Last Taken Unknown ] Metoprolol Tartrate [Lopressor 50 mg (*)] 75 mg PO BID #90 tab 01/04/18 [Last Taken Unknown] Polyethylene Glycol 3350 [Miralax 17 gm (*)] 17 gm PO DAILY PRN pkt 01/04/18 [ Last Taken Unknown] Sennosides/Docusate Sodium [Senokot-S] 1 - 2 tab PO BID tab 01/04/18 [Last Taken Unknown] Discharge Medications: Refer to the Discharge Home Medication list for PRN reason. PICC Care - Routine: N/A - Orders Services needed: Registered Nurse, Physical Therapy, Occupational Therapy Isolation Type: None Oxygen: 2-3 LPM to keep sats >92% Diet Recommendation: cardiac -low fat low salt Weigh Patient: daily - Labs/Radiology BMP Date: 01/09/18 (results to Dr. Ron Dill) - Follow Up Care Current Providers and Referrals: Camden Denny MD [Primary Care Provider] - As per Instructions Ron Dill MD [Medical Doctor] -
[2018-01-04 13:45] VITALS: BP 109/70
--- NOTE | 2018-01-04 13:50 | ASMTLACE ---
LACE Length of stay for Answers: 3 days current admission Acuity / Level of Answers: Yes Care: Did the patient have an inpatient admission? Comorbidities - select Answers: Coronary Artery Disease all that apply Diabetes (uncontrolled or controlled) Other Notes: HTN # of Emergency department Answers: 1-2 visits in the last 6 months Score: 11 Date Signed: 01/04/2018 01:49 PM Electronically Signed By:ANTOINE Vázquez
--- NOTE | 2018-01-04 13:51 | ASMTDCNOTE ---
Case Management Discharge Discharge Order Complete? Answers: Yes Patient to Obtain Answers: via Family Medications Transportation Arranged Answers: Other Notes: [facility] will Pick (Date 01/04/2018 03:00 PM & Time) EMTALA Complete Answers: No Case Management Transport Answers: Yes Form Complete Faxed Final Orders Answers: Yes Agency/Facility Transfer Answers: Yes Report Printed & Faxed to Receiving Agency Family Notified Answers: No Discharge Comments Notes: Pts case discussed in tx rounds. Pt is being discharged today to [facility]. DC orders sent. provided ANTHONY Field w/ phone number to give report. CM available for changes. Plan: [facility] Date Signed: 01/04/2018 01:50 PM Electronically Signed By:ANTOINE Vázquez
--- NOTE | 2018-01-04 13:54 | ASDISCHSUM ---
Discharge Information Plan Status:SNF Medically Cleared to Leave:01/04/2018 Discharge Date:01/04/2018 CM D/C Disposition: ADT D/C Disposition:[facility] Facility Projected Discharge Date:01/04/2018 11:00 AM Transportation at D/C: Discharge Delay Reason: Follow-Up Date:01/04/2018 11:00 AM Discharge Slot: Final Diagnosis: Placement Information Referral Type:*Long-Term/SNF Referral ID:[id number] Provider Name:[facility] Address 1:[address] Address 2: City:[place] Selection Factors: State:[place] Patient Contact Information Contact Name:RIMA Relationship: Address:[address] City:[place] Alternate Phone: State/Zip Code:[place] [address] Email: Financial Information Financial Class:Medicare Primary Plan Desc:MEDICARE INPATIENT Primary Plan Number:[id number] Secondary Plan Desc:[employer]/MDR SUPPLEMENT Secondary Plan Number:[id number] Assessment Information LACE LACE Length of stay for Answers: 3 days current admission Acuity / Level of Answers: Yes Care: Did the patient have an inpatient admission? Comorbidities - select Answers: Coronary Artery Disease all that apply Diabetes (uncontrolled or controlled) Other Notes: HTN # of Emergency department Answers: 1-2 visits in the last 6 months Score: 11 Date Signed: 01/04/2018 01:49 PM Electronically Signed By:ANTOINE Vázquez [facility] CM Progress Note CM Note CM Note Notes: 01/01/2018 Case Management Note Pt admitted for treatment of afib and pulmonary edema. Per PT pt uses a scooter in his home at baseline. Met w/pt during rounds. Discussed PT recommendation for SNF rehab. Pt in agreement, requested case management discuss with . Met w/ Caroline [phone]. Caroline in agreement. Pt has previous stay in [facility]. Faxed referral. [facility] is preferred facility. Faxed referral at request to [facility] in [place] as a back up. Case Management d/c poc: SNF rehab pending acceptance. Case Management to follow. Date Signed: 01/01/2018 02:44 PM Electronically Signed By:Barb Espino RN [facility] CM Progress Note CM Note CM Note Notes: Pts case discussed in tx rounds. [facility] and [facility] has accepted pt. CM met w/ pt and for dispo planning. CM communicated this information to them. Pt and would like to go to [facility]. CM notified [facility] that pt and has chosen another facility. CM to follow. Plan: [facility] Date Signed: 01/02/2018 11:48 AM Electronically Signed By:ANTOINE Vázquez Case Management Discharge Plan Note Case Management Discharge Discharge Order Complete? Answers: Yes Patient to Obtain Answers: via Family Medications Transportation Arranged Answers: Other Notes: [facility] [place] will Pick (Date 01/04/2018 03:00 PM & Time) BRANDIN Complete Answers: No Case Management Transport Answers: Yes Form Complete Faxed Final Orders Answers: Yes Agency/Facility Transfer Answers: Yes Report Printed & Faxed to Receiving Agency Family Notified Answers: No Discharge Comments Notes: Pts case discussed in tx rounds. Pt is being discharged today to [facility]. DC orders sent. provided ANTHONY Field w/ phone number to give report. CM available for changes. Plan: [facility] Date Signed: 01/04/2018 01:50 PM Electronically Signed By:ANTOINE Vázquez Intervention Information Intervention Type:*[place]-Signed Date of Service:01/01/2018 10:18 AM Patient Type:Observation Staff Member:Vania Pierre Hours: Discipline: Severity: Comment:
--- NOTE | 2018-01-16 09:55 | GDS ---
[f rep st] DISCHARGE SUMMARY DISCHARGE DIAGNOSES: 1. Atrial fibrillation with rapid ventricular rate, status post JORI and DC cardioversion. 2. Anticoagulation with Eliquis. 3. Generalized weakness requiring rehab. 4. Acute on chronic diastolic heart failure. 5. Acute hypoxic respiratory failure secondary to heart failure, suspected sleep apnea and probable obesity hypoventilation syndrome plus or minus underlying lung disease. 6. Iron-deficiency anemia. Recommend outpatient colonoscopy. 7. Coronary artery disease, status post PCI of the left anterior descending. 8. Diabetes mellitus type 2. 9. Neuropathy. 10. Anemia. Recommend outpatient colonoscopy. CONSULTANTS: Dr. Ron Dill, cardiology. IMAGING STUDIES/PROCEDURES: 1. Transesophageal echocardiogram performed January 01, 2018, showed normal left ventricular systolic f unction with dilated right ventricle and reduced RV function, left atrial enlargement, no evidence of intracardiac shunting and no thrombus noted in the left atrium or left atrial appendage, moderate to severe mitral regurgitation, mild tricuspid regurgitation. 2. Direct current electrocardioversion performed January 01, 2018, following transesophageal echocardio gram with successful return of normal sinus rhythm. HISTORY: For details, please see history and physical dated December 31, 2017. In brief, Mr. Ramos is an 84-year-old male with a history of coronary artery disease, hypertension, hyperlipidemia, and diabetes, who presents the hospital with weakness and new onset atrial fibrillat ion. He was admitted to the hospital for further management. HOSPITAL COURSE: Patient was admitted to the cardiac telemetry unit. He was initially treated with IV diltiazem and transitioned to oral metoprolol. His CHADS-VASc score was calculated at 5. He was started on heparin drip the evening of admission. He underwent JORI cardioversion the following morni ng, which returned normal sinus rhythm. In addition, he developed acute decompensated heart failure in the setting of rapid atrial fibrillation and required diuresis, IV Lasix. His volume status impro cliff. Therapy services recommend rehab. DISPOSITION: Patient is discharged to longterm facility rehab in stable condition. FOLLOWUP: 1. Dr. Ron Dill, cardiology. 2. Dr. Camden Denny, primary care. DISCHARGE MEDICATIONS: Please see [place] completed outpatient medication list. New medications on discharge include Lasix 20 mg p.o. daily, iron sulfate 325 mg p.o. daily, acetaminophen 650 mg p.o. q.4 hours p.r.n. and MiraLAX 17 g p.o. daily p.r.n. DISCONTINUED MEDICATIONS: Lisinopril discontinued due to low blood pressure in favor of metoprolol. Naproxen is discontinued due to initiation of anticoagulation and also aspirin is discontinued in fav or of Eliquis. In addition, he will continue amiodarone 200 mg p.o. daily, Eliquis 5 mg p.o. twice daily, omeprazole 20 mg p.o. daily, and metoprolol 50 mg p.o. b.i.d. Continue all other outpatient medications as pre viously prescribed. /[id number]/MODL
== END 2018-01-04 15:10 | DRG 308 ==
LOC: EDBD → F2W 14:52 → OBSVTOIN 01-01 15:03
PROVIDERS: ADMIT Student in an Organized Health Care Education/Training Program; ATTEND Student in an Organized Health Care Education/Training Program
PROC: B245ZZ4 Ultrasonography of Left Heart, Transesophageal (ICD-10-PCS; principal; 2018-01-01)
PROC: 5A2204Z Restoration of Cardiac Rhythm, Single (ICD-10-PCS; principal; 2018-01-01)
DX: I48.1 Persistent atrial fibrillation (principal); I11.0 Hypertensive heart disease with heart failure; I50.33 Acute on chronic diastolic (congestive) heart failure; G47.33 Obstructive sleep apnea (adult) (pediatric); E66.9 Obesity, unspecified; E78.5 Hyperlipidemia, unspecified; E11.9 Type 2 diabetes mellitus without complications; D64.9 Anemia, unspecified; I34.0 Nonrheumatic mitral (valve) insufficiency; Z79.84 Long term (current) use of oral hypoglycemic drugs; Z87.891 Personal history of nicotine dependence; Z95.5 Presence of coronary angioplasty implant and graft; Z66 Do not resuscitate
CPT/HCPCS: 82607-90; 84484-PO; 85520-90; 97110-GP; 97116-GP; 97162-GP; 97166-GO; 97530-GP; G0378; G8978-GP-CL; G8979-GP-CJ; G8987-GO-CM; G8988-GO-CL; J0461; J1644; J1815; J1940; J2704

== ENCOUNTER → 2018-01-09 | Outpatient (CLI) | payer OTHER, MEDICARE | DX: I48.91 Unspecified atrial fibrillation (principal); I25.10 Atherosclerotic heart disease of native coronary artery without angina pectoris; I10 Essential (primary) hypertension; I50.32 Chronic diastolic (congestive) heart failure ==

== ENCOUNTER 2018-01-31 09:44 | Day surgery (SDC) | payer OTHER, MEDICARE ==
[2018-01-31] MEDS ORDERED: NS 500 ML IV ONE (09:48)
[2018-01-31] MEDS ORDERED: fentaNYL 100 MCG/2 ML INJ IVP ONE (09:48)
[2018-01-31] MEDS ORDERED: ATROPINE SULFATE 1 MG/10 ML SYR IVP ONE (09:48)
[2018-01-31] MEDS ORDERED: MIDAZOLAM 2 MG/2 ML VIAL IVP ONE (09:48)
[2018-01-31 10:38] LABS: INR 1.18 (0.83-1.16); PROTIME(PATIENT) 15.2 SEC (12.0-15.0)
[2018-01-31] MEDS ORDERED: PROPOFOL 200 MG/20 ML VIAL ONE (15:36)
--- NOTE | 2018-01-31 15:36 | PDANEPAE ---
ANE History of Present Illness here for CV ANE Past Medical History - Cardiovascular History Hx Hypertension: Yes Hx Arrhythmias: Yes Hx Chest Pain: No Hx Coronary Artery / Peripheral Vascular Disease: Yes Hx CHF / Valvular Disease: No Hx Palpitations: No Cardiovascular History Comment: AFIB w/ Cardioversion; - Pulmonary History Hx COPD: No Hx Asthma/Reactive Airway Disease: No Hx Recent Upper Respiratory Infection: No Hx Oxygen in Use at Home: No Hx Sleep Apnea: No Pulmonary History Comment: SOB & Fluid on lungs r/t Afib currently weaning off supplimental O2; - Neurologic History Hx Cerebrovascular Accident: No Hx Seizures: No Hx Dementia: No Neurologic History Comment: bilateral neuropathy hands and feet - Endocrine History Hx Diabetes: Yes Endocrine History Comment: DMII - Renal History Hx Renal Disorders: No - Liver History Hx Hepatic Disorders: No - Neurological & Psychiatric Hx Hx Neurological and Psychiatric Disorders: Yes Neurological / Psychiatric History Comment: bilateral neuropathy hands and feet - Cancer History Hx Cancer: No - Congenital Disorder History Hx Congenital Disorders: No - GI History Hx Gastrointestinal Disorders: Yes Gastrointestinal History Comment: GERD; Numerous Polyps resulting in partial Colectomy & Hernia w/ repair; - Other Health History Other Health History: Upper and Lower dentures;. Restless Leg Syndrom; Claustrophobia; - Chronic Pain History Chronic Pain: Yes (everywhere) - Surgical History Prior Surgeries: back fusion;. neck fusion;. bilateral shoulders repairs;. right total knee;. Left Total knee;. colectomy ~ 18inches removed;. cardiac stent 10-15 years ago;. right hip fusion;. Hernia repair with Mesh; ANE Review of Systems Review of Systems: - Exercise capacity Exercise capacity: <4 METS ANE Patient History - Allergies Allergies/Adverse Reactions: DARVON Allergy (Uncoded 12/31/17 11:16) Other-Enter Comments LACTOSE INTOL Allergy (Uncoded 12/31/17 11:16) Other-Enter Comments - Home Medications Home Medications: Nortriptyline HCl [Pamelor 50 mg (*)] 50 mg PO BID 03/07/13 [Last Taken 08:00] [place]-3 Fatty Acids [Fish Oil 1000 mg (*)] 1,000 mg PO BIDMEAL 03/07/13 [Last Taken 01/14/18] Simvastatin [Zocor 20 mg] 20 mg PO DAILY 03/07/13 [Last Taken 01/14/18] metFORMIN HCL [Glucophage 500 mg (*)] 1,000 mg PO BIDMEAL 03/07/13 [Last Taken 01/14/18] Multivitamins [Multivitamin (*)] 1 each PO DAILY 11/01/16 [Last Taken 01/14/18] Gabapentin [Neurontin 300 MG (*)] 300 mg PO DAILY 12/31/17 [Last Taken 01/14/18] Gabapentin [Neurontin 300 MG (*)] 600 mg PO HS 12/31/17 [Last Taken 01/13/18] rOPINIRole HCL [Requip 0.25mg (RX)] 0.25 mg PO HS 12/31/17 [Last Taken 01/13/18] Metoprolol Tartrate [Lopressor 50 mg (*)] 50 mg PO BID 01/10/18 [Last Taken 11/26 08:00] Amiodarone HCl [Pacerone (*)] 200 mg PO DAILY 01/14/18 [Last Taken 01/14/18] Apixaban [Eliquis] 5 mg PO BID 01/14/18 [Last Taken 01/14/18] Omeprazole 20 mg PO DAILY 01/14/18 [Last Taken 01/14/18] - Smoking Hx Smoking Status: Former smoker - Family Anes Hx Family Hx Anesthesia Complications: none ANE Labs/Vital Signs - Labs Result Diagrams: 01/31/18 10:10 - Vital Signs Height: 179 cm Weight: 113.4 kg ANE Physical Exam - Airway Neck exam: FROM Mouth exam: normal dental/mouth exam - Pulmonary Pulmonary: no respiratory distress - Cardiovascular Cardiovascular: irregularly irregular - ASA Status ASA Status: III ANE Anesthesia Plan Anesthesia Plan: GA with mask
--- NOTE | 2018-01-31 15:47 | PDHPUP ---
History & Physical Update H&P update statement: This history and physical update is based on an assessment of the patient which was completed after admission or registration (within 24 hours), but prior to the surgery/procedure. H&P update: H&P reviewed & patient examined H&P changes: no changes...cv for a fib on eloquis and had tatum/cv 3 weeks ago ..now on amiodarone for repeat cv
--- NOTE | 2018-01-31 17:09 | CPEKG ---
Test Reason : OPEN Blood Pressure : / mmHG Vent. Rate : 091 BPM Atrial Rate : 091 BPM P-R Int : 210 ms QRS Dur : 120 ms QT Int : 405 ms P-R-T Axes : 045 -58 063 degrees QTc Int : 499 ms Sinus rhythm First degree AV block. Nonspecific IVCD with LAD Confirmed by José Miguel Holman ([id number]) on 01/31/2018 5:09:00 PM Referred By: Confirmed By:José Miguel Holman
--- NOTE | 2018-01-31 17:14 | CPEKG ---
Test Reason : OPEN Blood Pressure : / mmHG Vent. Rate : 116 BPM Atrial Rate : 123 BPM P-R Int : 152 ms QRS Dur : 119 ms QT Int : 356 ms P-R-T Axes : 000 -76 067 degrees QTc Int : 495 ms Atrial fibrillation Left anterior fascicular block Low voltage, extremity leads Confirmed by José Miguel Holman ([id number]) on 01/31/2018 5:13:24 PM Referred By: Confirmed By:José Miguel Holman
--- NOTE | 2018-02-01 11:32 | POSTANESTH ---
Post Anesthetic Evaluation Cardiovascular Status: Normal, Stable Respiratory Status: Normal, Stable Level of Consciousness/Mental Status: Can Participate in Eval Pain Control: Adequate, Prn Tx Ordered Nausea/Vomiting Control: Adequate, Prn Tx Ordered Complications Possibly Related to Anesthesia: None Noted
== END 2018-01-31 17:14 | disposition home or self-care (01) ==
LOC: EDBD → FCATH 09:44
PROVIDERS: ATTEND Internal Medicine Interventional Cardiology
PROC: 5A2204Z Restoration of Cardiac Rhythm, Single (ICD-10-PCS; principal; 2018-01-31)
DX: I48.91 Unspecified atrial fibrillation (principal); I25.10 Atherosclerotic heart disease of native coronary artery without angina pectoris; I10 Essential (primary) hypertension; I50.32 Chronic diastolic (congestive) heart failure; Z66 Do not resuscitate
CPT/HCPCS: J2704

== ENCOUNTER → 2018-03-06 | Outpatient (CLI) | payer OTHER, MEDICARE | LOC: BHLMT 14:45 | PROVIDERS: ATTEND Internal Medicine Cardiovascular Disease | DX: I72.9 Aneurysm of unspecified site (principal) | CPT/HCPCS: 76775-PO ==

== ENCOUNTER → 2018-03-07 | Outpatient (CLI) | payer OTHER, MEDICARE | LOC: BHFA 09:00 | PROVIDERS: ATTEND Internal Medicine Interventional Cardiology | DX: I48.2 Chronic atrial fibrillation (principal) ==

== ENCOUNTER → 2018-06-05 | Outpatient (CLI) | payer OTHER, MEDICARE | LOC: EDBD → BMCIMAGING 12:34 | PROVIDERS: ATTEND Family Medicine | DX: M54.2 Cervicalgia (principal); Z98.1 Arthrodesis status ==

== ENCOUNTER → 2018-07-08 | Outpatient (CLI) | payer OTHER, MEDICARE | LOC: FIMAGING 14:52 | DX: M16.0 Bilateral primary osteoarthritis of hip (principal) ==

== ENCOUNTER → 2018-08-16 | Outpatient (CLI) | payer OTHER, MEDICARE | LOC: BMCIMAGING 08:48 | PROVIDERS: ATTEND Internal Medicine | DX: M54.5 Low back pain (principal); M40.204 Unspecified kyphosis, thoracic region; M51.34 Other intervertebral disc degeneration, thoracic region; Z98.1 Arthrodesis status | CPT/HCPCS: G0103 ==

== ENCOUNTER → 2018-10-03 | Outpatient (CLI) | payer OTHER, MEDICARE | LOC: FIMAGING 10:17 | PROVIDERS: ATTEND Internal Medicine | DX: Z13.820 Encounter for screening for osteoporosis (principal); Z98.1 Arthrodesis status; M85.89 Other specified disorders of bone density and structure, multiple sites ==